=== PATIENT | male | born 1930 | race Caucasian/White ===

== ENCOUNTER 2020-03-14 11:16 | Inpatient (IN) | payer MEDICARE, OTHER ==
[~2020-03-14] VITALS: Ht 180.3 cm; Wt 59.0 kg
[2020-03-14] VITALS (10 sets, daily range): BP systolic 107–126; BP diastolic 53–90
[2020-03-14 11:41] LABS: ABG BASE EXCESS 4.9 mmol/L; ABG OXYGEN SATURATION 96.3 % (92.0-98.5); ABG PCO2 51.1 mmHg (35.0-45.0); ABG PH 7.392 (7.350-7.450); ABG PO2 95.1 mmHg (75.0-100.0); AaDO2 80.5 mmHg; COHb 1.4 % (0.5-1.5); MetHb 0.7 % (0.0-1.5); O2Hb 94.3 % (94.0-97.0); SITE, ABG Left Brachial; VENT MODE, BG NASAL CANNULA
[2020-03-14] MEDS ORDERED: ALBUTEROL FS 2.5 MG/3 ML VIAL.NEB ONE (11:47)
[2020-03-14] MEDS ORDERED: IPRATROPIUM NEB FS 0.5 MG/2.5 ML AMPUL.NEB ONE (11:47)
--- NOTE | 2020-03-14 11:53 | NUR ---
DECREASED O2 FLOW FROM 3 LPM TO 1 LPM O2 FLOW DUE TO 51 PCO2 AND 95 PAO2 Addendum: 03/14/20 at 1153 by OSWALD MCDERMOTT RT Amended: Links added.
--- NOTE | 2020-03-14 11:55 | NUR ---
BIBRA FROM SNF TO ER BED 5. LETHARGIC BUT EASILY ARROUSABLE. AAOX1. IN MOD RESP DISTRESS, LABORED BREATHING WITH ACCESSORY MUSCLE USE AND TACHYPNEIC. BROUGHT IN FOR DYSPNEA. PT REPORTED MORE ALTERED THAN USUAL. NOTED CRACKLES AND RONCHI BILATERALLY. O2 SAT IS 99% ON 3LPM. PT IS EASILY ARROUSABLE AND ABLE TO ANSWER SIMPLE QUESTION. PT IS NOTED WITH LOW GRADE TEMP OF 99.6 RECTALLY. MD WAS AT THE BEDSIDE FOR EVAL. ORDERS RECEIVED NOTED AND CARRIED OUT. IV LINE ESTABLISHED ON R CA20G. BLOOD DRAW. EKG DONE.XRAY DONE. PT ON MONITOR. RT AT BEDSIDE
[2020-03-14] MEDS ORDERED: ALBUTEROL FS 2.5 MG/3 ML VIAL.NEB NEB ONE (12:00)
[2020-03-14] MEDS ORDERED: IPRATROPIUM NEB FS 0.5 MG/2.5 ML AMPUL.NEB NEB ONE (12:00)
[2020-03-14 12:11] LABS: BASOPHILS # (AUTO) 0.1 /CMM (0.0-0.2); BASOPHILS % (AUTO) 0.4 % (0.0-2.0); EOSINOPHILS % (AUTO) 2.2 % (0.0-6.0); LYMPHOCYTES # (AUTO) 1.1 /CMM (0.8-4.8); LYMPHOCYTES % (AUTO) 9.1 % (20.0-44.0); MEAN CORPUSCULAR HGB CONC 30 g/dl (31.0-36.0); MEAN CORPUSCULAR VOLUME 74 fL (80-96); MONOCYTES # (AUTO) 1.6 /CMM (0.1-1.30); MONOCYTES % (AUTO) 13.1 % (2.0-12.0); NEUTROPHILS % (AUTO) 75.2 % (43.0-81.0); PLATELET COUNT (AUTO) 341 /CMM (150-450); RED BLOOD CELL COUNT(AUTO) 2.47 MIL/uL (4.5-6.0)
[2020-03-14 12:13] LABS: APPEARANCE,URINE CLEAR (CLEAR); BILIRUBIN,URINE NEGATIVE (NEGATIVE); BLOOD, URINE NEGATIVE Ery/uL (NEGATIVE); COLOR,URINE YELLOW (YELLOW); KETONES,URINE NEGATIVE (NEGATIVE); LEUKOCYTE ESTERASE ,URINE NEGATIVE (NEGATIVE); NITRITE, URINE NEGATIVE (NEGATIVE); PROTEIN,URINE NEGATIVE (NEGATIVE); UGLUCOSE NEGATIVE (NEGATIVE); UROBILINOGEN,URINE 0.2 EU/dL (0.2)
[2020-03-14 12:24] LABS: HEMATOCRIT 18 % (39-51); HEMOGLOBIN 5.4 g/dL (13.5-17.5)
[2020-03-14 12:25] LABS: CALCIUM, SERUM 8.4 mg/dL (8.5-10.1); CARBON DIOXIDE 32 mmol/L (21-32); CHLORIDE 114 mmol/L (98-107); CREATININE 1.5 mg/dL (0.6-1.3); GLUCOSE 88 mg/dL (74-106); POTASSIUM 4.6 mmol/L (3.5-5.1); SODIUM SERUM 150 mmol/L (136-145); UREA NITROGEN, BLOOD 31 mg/dL (7-18)
[2020-03-14] MEDS ORDERED: IV NS 0.9% 500 ML BAG IV ONE (12:30)
--- NOTE | 2020-03-14 12:30 | NUR ---
RT AT BEDSIDE FOR SUCTIONING NASOTRACHEAL ORDERED BY
[2020-03-14 12:39] LABS: ALANINE AMINOTRANSFERASE 60 U/L (12-78); ALKALINE PHOSPHATASE 107 U/L (46-116); ASPARTATE AMINOTRANSFERASE 44 U/L (15-37); B-TYPE NATRIURETIC PEPTIDE 1838 PG/ML (0-125); BILIRUBIN,DIRECT 0.1 mg/dL (0.0-0.2); BILIRUBIN,TOTAL 0.2 mg/dL (0.2-1.0); TOTAL PROTEIN, SERUM 7.7 g/dL (6.4-8.2)
[2020-03-14] MEDS ORDERED: CT SWABBABLE VALVE TRANS SET 1 EA INFUS.SET MC ONE (13:00)
[2020-03-14] MEDS ORDERED: IV NS 0.9% 250 ML IV ONE (13:00)
[2020-03-14] MEDS ORDERED: IOHEXOL-350 100 ML VIAL IV ONE (13:00)
--- NOTE | 2020-03-14 13:14 | NUR ---
BED 105 ARNULFO
--- NOTE | 2020-03-14 13:16 | NUR ---
LEFT VM TO HOUSE SUP TO CHANGE BED TO ICU
[2020-03-14 13:25] LABS: EOSINOPHILS % (MANUAL) 2 % (0-4); LYMPHOCYTES % (MANUAL) 12 % (16-48); MONOCYTES % (MANUAL) 7 % (0-11.0); NEUTROPHILS % (MANUAL) 79 (42-76)
[2020-03-14] MEDS ORDERED: LEVOFLOXACIN 750 MG /D5W 150ML 150 ML IV ONE (13:30)
[2020-03-14] MEDS ORDERED: PIPERACILLIN /TAZOBACTAM 3.375 G in IV D5W 50 ML IV ONE (13:30)
--- NOTE | 2020-03-14 13:33 | NUR ---
COVID SWAB DONE AND SENT TO LAB
--- NOTE | 2020-03-14 13:44 | NUR ---
PT BACK FROM CT
[2020-03-14] MEDS ORDERED: MAG HYDROX/AL HYDROX/SIMETH 30 ML UDC PO PRN (14:00)
[2020-03-14] MEDS ORDERED: MAGNESIUM HYDROXIDE 30 ML UDC PO PRN (14:00)
[2020-03-14] MEDS ORDERED: ONDANSETRON HCL/PF 4 MG/2 ML VIAL IVP PRN (14:00)
[2020-03-14] MEDS ORDERED: Z GUARD REMEDY 2 OZ OINT TP PRN (14:00)
[2020-03-14] MEDS ORDERED: ACETAMINOPHEN 325 MG TABLET PO PRN (14:00)
[2020-03-14] MEDS ORDERED: HYDROCODONE/APAP 5/325MG TABLET PO PRN (14:00)
--- NOTE | 2020-03-14 14:17 | NUR ---
REPORT FRANCY TO MONY DUPONT FOR MONA
--- NOTE | 2020-03-14 14:57 | NUR ---
PT TRASNPORTED TO UNIT ON [facility] WITH EMT AND RN AT BEDSIDE W/ ACLS PROTOCOL. NAD NOTED DURING TRANSPORT.
--- NOTE | 2020-03-14 15:54 | NUR ---
RN NOTE 1552 VS for blood transfusion: 98.2 83, 113/71, 22, 99%
--- NOTE | 2020-03-14 16:07 | NUR ---
RN NOTE VS after 15 min on BT: 116/54, 77, 26, 98%, 98.2.
--- NOTE | 2020-03-14 16:33 | NUR ---
RN NOTE 1445: Admitted patient from ER, 89y/o male for severe anemia, Hgb 5.4, Hct 18, no active bleeding. With GT intact, no active bleeding noted, noted with minimal bleeding on mouth but per ER nurse, started after swabbing for Covid test. Noted with labored breathing AEB using accessory muscles. Skin assessment done with another RN, Cy, noted with bilateral buttocks, left hib and BLE healed wound scars and below right knee wound, taken pictures and attached to chart. Placed on isolation prec for R/O Covid. 2PIVs intact. 1600: Blood transfusion ongoing, tolerated well. 1630: Verified with Dr. Ward, will do 2 units of blood instead of one only ordered from ER and labs in am.
[2020-03-14] MEDS: PANTOPRAZOLE 40 MG VIAL IV SCH (16:42)
--- NOTE | 2020-03-14 17:00 | NUR ---
RN NOTE VS for BT: 98.1, 76, 25, 107/53, 99
--- NOTE | 2020-03-14 18:00 | NUR ---
RN NOTE VS for BT: 98.3, 79, 27, 116/70, 99%
[2020-03-14] MEDS: ZOSYN IVPB 3.375 G in IV D5W 50ml IV SCH (18:05)
--- NOTE | 2020-03-14 18:59 | NUR ---
RN NOTE Done with 1PRBC< no adverse reactions noted. VS as ff: 123/69, 888, 98%, 25, 98.2
--- NOTE | 2020-03-14 20:11 | NUR ---
RN NOTES 2ND UNIT OF PRBC STARTED PATIENT IS AWAKE , VERBALLY RESPONSIVE ON O2 WITH TEMP 97.6, RESP 28 PULSE 87 BP 121/66 SATURATION 100% SR ON TELE MONITOR. NO RESPIRATORY DISTRESS. ON O2 1LPM VIA NC. KEPT PT CLEAN AND DRY. WILL CONTINUE TO MONITOR.
--- NOTE | 2020-03-14 20:30 | NUR ---
RN NOTES VS CHECKED TEMP 97.8 RESP 23 HR 88 BP 123/62 SATURATION 100% SR ON TELE MONITOR. PATIETN IS AWAKE VERBALLY RESPONSIVE. CONTINUE WITH BLOOD TRANSFUSION.
--- NOTE | 2020-03-14 23:30 | NUR ---
RN NOTES 2ND BLOOD TRANSFUSION FINISHED, TOLERATED WELL . PATIENT IS AOX3 WITH PWRIODS OF FORGETFUL. VERBALLY RESPONSIVE, NO ADVERSE REACTION FROM BLOOD TRANSFUSION LAST VSS AFTER TRANSFUSION ARE THE FF; TEMP 98.6 RESP 20 PULSE 84 BP 15/66 SATURATION 100% SR ON TELE MONITOR. INCONTINENT CARE RENDERED WITH BMX1 PADS SOAKING WITH URINE. KEPT PT CLEAN AND DRY. WILL CONTINUE TO MONITOR.
[2020-03-15] VITALS (22 sets, daily range): BP systolic 97–147; BP diastolic 53–80
[2020-03-15] MEDS: ZOSYN IVPB 3.375 G in IV D5W 50ml IV SCH ×2 (00:45→06:10)
[2020-03-15 03:58] LABS: BASOPHILS # (AUTO) 0.1 /CMM (0.0-0.2); BASOPHILS % (AUTO) 0.5 % (0.0-2.0); HEMATOCRIT 26 % (39-51); HEMOGLOBIN 8.1 g/dL (13.5-17.5); LYMPHOCYTES # (AUTO) 0.8 /CMM (0.8-4.8); MEAN CORPUSCULAR HGB CONC 31 g/dl (31.0-36.0); MEAN CORPUSCULAR VOLUME 77 fL (80-96); MONOCYTES # (AUTO) 1.5 /CMM (0.1-1.30); MONOCYTES % (AUTO) 10.9 % (2.0-12.0); NEUTROPHILS # (AUTO) 10.8 /CMM (1.8-8.9); NEUTROPHILS % (AUTO) 80.6 % (43.0-81.0); PLATELET COUNT (AUTO) 332 /CMM (150-450); WHITE BLOOD COUNT (AUTO) 13.4 K/uL (4.3-11.0)
[2020-03-15 04:14] LABS: CALCIUM, SERUM 8.9 mg/dL (8.5-10.1); CARBON DIOXIDE 28 mmol/L (21-32); CHLORIDE 116 mmol/L (98-107); CREATININE 1.5 mg/dL (0.6-1.3); GLUCOSE 80 mg/dL (74-106); MAGNESIUM 2.7 mg/dL (1.8-2.4); PHOSPHORUS 3.3 mg/dL (2.5-4.9); POTASSIUM 4.2 mmol/L (3.5-5.1); SODIUM SERUM 152 mmol/L (136-145); UREA NITROGEN, BLOOD 29 mg/dL (7-18)
--- NOTE | 2020-03-15 07:00 | NUR ---
RN NOTES PATIENT REMAINED STABLE DENIES PAIN. AFEBRILE. ROOM AIR TOLERATED WELL SATURATION 100%. SR ON TELE MONITOR. PATIENT SPITTING OUT THICK WHITE WITH TINGED OF BLOOD SECRETION. NO RESPIRATORY DISTRESS. VSS. NO PRESSORS, NO ACTIVE BLEEDING. SP BLOOD TRANSFUSION TOERATED WELL WITHOUT ADVERSE REACTION, INCONTINENT CARE RENDERED. KEPT PT CLEAN AND DRY. ENDORSED CONTINUITY OF CARE TO AM NURSE. LAST HGB THIS MORNING 8.1.
--- NOTE | 2020-03-15 07:15 | NUR ---
RN INITIAL NOTES RECEIVED PT AWAKE, A/OX2-3. ON ROOM AIR. NO SOB NOTED. NO RESPIRATORY DISTRESS NOTED. DENIES ANY PAIN. IV LINES IN PLACE. PT CLEAN AND DRY. PT COMFORTABLE. CALL LIGHT WITHIN REACH. WILL MONITOR
[2020-03-15 08:22] LABS: IRON, SERUM 131 ug/dl (50-175); TOTAL IRON BINDING CAPACITY 353 ug/dl (250-450)
--- NOTE | 2020-03-15 08:30 | NUR ---
RN NOTES SEEN BY DR MALIN. PT AWAKE, A/O. ON ROOM AIR. MD AWARE OF LATEST LABS AND CXR RESULT. OK TO DOWNGRADE PT TO TELE. WILL MONITOR
[2020-03-15 08:39] LABS: FERRITIN 145 ng/mL (8-388)
[2020-03-15] MEDS: IV 1/2NS 1000 ML 1,000 ML IV SCH ×2 (08:52→20:49)
[2020-03-15] MEDS: PANTOPRAZOLE 40 MG VIAL IV SCH ×2 (08:52→16:25)
[2020-03-15] MEDS: ENOXAPARIN SODIUM 40 MG/0.4 ML DISP.SYRIN SQ SCH (08:56)
[2020-03-15] MEDS ORDERED: POLY17PO4 PO (09:59)
[2020-03-15] MEDS ORDERED: NA P133E RC (09:59)
[2020-03-15] MEDS ORDERED: MULT-447 PO (09:59)
[2020-03-15] MEDS ORDERED: FLUT16SP NS (09:59)
[2020-03-15] MEDS ORDERED: ACET-2605 PO (09:59)
[2020-03-15] MEDS ORDERED: QUERCETIN PO (09:59)
[2020-03-15] MEDS ORDERED: LORA10TA7 PO (09:59)
[2020-03-15] MEDS ORDERED: SENN-261 PO (09:59)
[2020-03-15] MEDS ORDERED: ATOR20TA PO (09:59)
[2020-03-15] MEDS ORDERED: CITA10TA9 PO (09:59)
[2020-03-15] MEDS ORDERED: POTA-10 PO (09:59)
[2020-03-15] MEDS ORDERED: ACET325C7 PO (09:59)
[2020-03-15] MEDS ORDERED: CHOL100045 PO (09:59)
[2020-03-15] MEDS ORDERED: EPOE40003 IJ (09:59)
[2020-03-15] MEDS ORDERED: AMLO10TA4 PO (09:59)
[2020-03-15] MEDS ORDERED: MAGN400O6 PO (09:59)
[2020-03-15] MEDS ORDERED: TAMS-12 PO (09:59)
[2020-03-15] MEDS ORDERED: BISA10SU61 RC (09:59)
[2020-03-15] MEDS ORDERED: FERR325T23 PO (09:59)
[2020-03-15] MEDS ORDERED: TRAM50TA2 PO (09:59)
[2020-03-15] MEDS ORDERED: DOCU-141 PO (09:59)
[2020-03-15] MEDS ORDERED: MIRT15TA7 PO (09:59)
[2020-03-15] MEDS: PIPERACILLIN /TAZOBACTAM 3.375 G in IV D5W 100 ML IV SCH ×2 (13:53→20:49)
--- NOTE | 2020-03-15 18:30 | NUR ---
CLOSING NOTES NO SIGNIFICANT CHANGE NOTED. ON ROOM AIR. NO RESPIRATORY DISTRESS. NO SOB NOTED. DENIES ANY PAIN. KEPT CLEAN AND DRY. KEPT COMFORTABLE. WILL ENDORSE FOR CONTINUITY OF CARE.
--- NOTE | 2020-03-15 19:40 | NUR ---
RN OPENING NOTES: Rec'd pt awake in bed, A&Ox2-3. On room air O2 WNL. No SOB or resp distress noted. On isolation for R/O Covid. SR on tele monitor. NPO w/ GT site noted. LFA #20 and RAC #20 patent and flushed. Dressing c/d/i. 1/2NS infusing at 75ml/hr tolerating well. Safety measures in place. Will continue to monitor.
[2020-03-15 20:30] LABS: OCCULT BLOOD STOOL POSITIVE (NEGATIVE)
[2020-03-16] VITALS: BP 145/78
--- NOTE | 2020-03-16 03:31 | NUR ---
RN NOTE: Pt noted to have pulled out RAC IV. Elevated extremity and applied pressure. Started new line On RFA #20 patent and flushed.
[2020-03-16 04:00] VITALS: BP 126/92
[2020-03-16 04:24] LABS: BASOPHILS # (AUTO) 0.1 /CMM (0.0-0.2); BASOPHILS % (AUTO) 0.9 % (0.0-2.0); EOSINOPHILS % (AUTO) 2.5 % (0.0-6.0); HEMATOCRIT 27 % (39-51); HEMOGLOBIN 8.3 g/dL (13.5-17.5); LYMPHOCYTES # (AUTO) 0.9 /CMM (0.8-4.8); LYMPHOCYTES % (AUTO) 7.5 % (20.0-44.0); MEAN CORPUSCULAR HGB CONC 31 g/dl (31.0-36.0); MEAN CORPUSCULAR VOLUME 78 fL (80-96); MONOCYTES # (AUTO) 1.3 /CMM (0.1-1.30); MONOCYTES % (AUTO) 10.7 % (2.0-12.0); NEUTROPHILS # (AUTO) 9.3 /CMM (1.8-8.9); NEUTROPHILS % (AUTO) 78.4 % (43.0-81.0); PLATELET COUNT (AUTO) 350 /CMM (150-450); RED BLOOD CELL COUNT(AUTO) 3.45 MIL/uL (4.5-6.0); WHITE BLOOD COUNT (AUTO) 11.8 K/uL (4.3-11.0)
[2020-03-16 04:35] LABS: ALANINE AMINOTRANSFERASE 38 U/L (12-78); ALBUMIN 2.1 g/dL (3.4-5.0); ALKALINE PHOSPHATASE 103 U/L (46-116); ASPARTATE AMINOTRANSFERASE 24 U/L (15-37); BILIRUBIN,TOTAL 0.6 mg/dL (0.2-1.0); CALCIUM, SERUM 9.6 mg/dL (8.5-10.1); CARBON DIOXIDE 27 mmol/L (21-32); CHLORIDE 118 mmol/L (98-107); CREATININE 1.6 mg/dL (0.6-1.3); GLUCOSE 76 mg/dL (74-106); SODIUM SERUM 155 mmol/L (136-145); UREA NITROGEN, BLOOD 26 mg/dL (7-18)
[2020-03-16 04:52] LABS: CREATINE KINASE, TOTAL 80 U/L (39-308); THYROID STIMULATING HORMONE 2.193 uIU/mL (0.358-3.74); URIC ACID 5.9 mg/dL (2.6-7.2)
[2020-03-16] MEDS: PIPERACILLIN /TAZOBACTAM 3.375 G in IV D5W 100 ML IV SCH ×3 (05:15→21:24)
--- NOTE | 2020-03-16 06:35 | NUR ---
RN CLOSING NOTES: Pt remained stable throughout shift. No acute changes noted. No SOB or resp distress noted throughout shift. Remains on room air, with O2 WNL. SR w/ PVC's on tele monitor. NPO. LFA #20 and RFA #20 patent and flushing w/ 1/2NS infusing at 75ml/hr. and Zosyn infusing at 25ml/hr. Covid result neg. house calls nurse MD aware. All meds given as ordered. Kept clean/dry. Safety measures in place. Will endorse to AM nurse for MONA.
[2020-03-16 08:00] VITALS: BP 134/92
--- NOTE | 2020-03-16 08:00 | NUR ---
SALES REPRESENTATIVE MALT LIQUORS NOTE PATIENT IN BED, ALL NEEDS ATTENDEE, ON TELE MONITOR SR HR 96 , NO SOB NOTED AT THIS TIME STILL ON NPO AT THIS TIME , LT FA AND RT FA HL INTACT AND FLUSHED WELL ,BED IN LOWEST AND LOCKED POSITION , ON IVF ORDERED WILL CONT TO MONITOR
[2020-03-16] MEDS: ENOXAPARIN SODIUM 40 MG/0.4 ML DISP.SYRIN SQ SCH (08:51)
[2020-03-16] MEDS: PANTOPRAZOLE 40 MG VIAL IV SCH ×2 (08:51→17:10)
--- NOTE | 2020-03-16 09:00 | NUR ---
COLD ROLLING SUPERVISOR NOTE SPOKE WITH DR COTTO GEOTHERMAL OPERATIONS ENGINEER NOTIFIED THAT PATIENT WITH CHECK CONGESTION WILL F\U
[2020-03-16] MEDS: IV 1/2NS 1000 ML 1,000 ML IV SCH (10:42)
--- NOTE | 2020-03-16 10:59 | NUR ---
CIVIL LITIGATION ATTORNEY NOTE SPOKE WITH DR MOLINA NOTIFIED ABOUT CHEST CONGESTION ON IVF ORDERED
[2020-03-16 12:00] VITALS: BP 144/92
--- NOTE | 2020-03-16 13:03 | NUR ---
PHOTO MASK PATTERN GENERATOR NOTE TRANSFERRED TO ROOM 322 BED 2 WITH STABLE CONDITION
--- NOTE | 2020-03-16 13:45 | NUR ---
PHLEBOTOMY SUPERVISOR NOTE NOTED PATIENT SITTING ON FLOOR NEXT TO HIS BED , BODY CHECK DONE, VS TAKE ,NO SOB NOTED SKIN INTACT, ABLE TO MOVE BOTH UPPER AND LOWER EXTREMITIES, NO C\O PAIN OR DISCOMFORT MARGARITO WILL CALL DR NIELSEN
--- NOTE | 2020-03-16 14:30 | NUR ---
CITY WEIGHMASTER NOTE DR BO CALLED BACK AWARE OF PATIENT CONDITION. NO NEW ORDER GIVEN AT THIS TIME , SON KATIANA NOTIFIED
[2020-03-16 16:00] VITALS: BP 104/55
--- NOTE | 2020-03-16 18:15 | NUR ---
MEMBER SERVICE SPECIALIST NOTE WITH SEVERE CHEST CONGESTION, GENTLE SUCTION DONE BY RT, NOTE BLOODY SECRETION , DR COTTO NOTIFIED WITH ORDER TO HOLD LOVENOX ,ORDER CARRIED OUT
--- NOTE | 2020-03-16 18:28 | NUR ---
DISABILITY MANAGER NOTE ALL NEEDS ATTENDED , ON IVF ORDERED, WILL CONT TO MONITOR
[2020-03-16 18:36] LABS: APPEARANCE,URINE CLEAR (CLEAR); BILIRUBIN,URINE NEGATIVE (NEGATIVE); BLOOD, URINE SMALL Ery/uL (NEGATIVE); COLOR,URINE YELLOW (YELLOW); KETONES,URINE NEGATIVE (NEGATIVE); LEUKOCYTE ESTERASE ,URINE NEGATIVE (NEGATIVE); NITRITE, URINE NEGATIVE (NEGATIVE); PH,URINE 5.5 (5.0-8.0); PROTEIN,URINE NEGATIVE (NEGATIVE); UGLUCOSE NEGATIVE (NEGATIVE); UROBILINOGEN,URINE 0.2 EU/dL (0.2)
[2020-03-16 18:41] LABS: CREATININE, URINE 72.5 MG/DL (30.0-125.0)
[2020-03-16 18:55] LABS: EOSINOPHIL,URINE None Seen
[2020-03-16] MEDS ORDERED: DEXTROSE 50%-WATER 50 ML DISP.SYRIN IV PRN (19:00)
--- NOTE | 2020-03-16 19:40 | NUR ---
TRANSFER CAR OPERATOR NOTE: PATIENT RESTING IN BED, NO ACUTE DISTRESS NOTED. BREATHING EVEN AND UNLABORED, NO SOB NOTE. IV TO RFA IN PLACE, INFUSING 1/2 NS AT 75ML/HR. BED LOCKED AND IN LOWEST POSITION, CALL LIGHT IN REACH. WILL CONTINUE TO MONITOR. Addendum: 03/16/20 at 2231 by PATSY POTTER RN G-TUBE IN PLACE, CLAMPED AT THIS TIME.
[2020-03-16 20:00] VITALS: BP 139/73
[2020-03-16] MEDS ORDERED: INSULIN REGULAR, HUMAN 100 UNIT/ML 3 ML VIAL SQ PRN (21:00)
--- NOTE | 2020-03-16 21:00 | NUR ---
GENERAL NEUROLOGIST NOTE: PATIENT FALL RISK AND PATIENT MOVED CLOSER TO THE STATION TO ROOM 309-1. BELONGINGS MOVED TO ROOM. BED LOCKED AND IN LOWEST POSITION, CALL LIGHT IN REACH. WILL CONTINUE TO MONITOR.
[2020-03-17] MEDS ORDERED: BLOOD SUGAR DIAGNOSTIC 1 EACH STRIP IN SCH
[2020-03-17] MEDS: IV 1/2NS 1000 ML 1,000 ML IV SCH ×2 (00:45→13:20)
--- NOTE | 2020-03-17 01:20 | NUR ---
OFFSHORE WIND TURBINE TECHNICIAN NOTE: PATIENT STARTED ON JEVITY 1.2 AT 30ML/HR, PER MD ORDER. WILL CONTINUE AT 30ML/HR FOR 24 HOURS AND TO ADVANCE TOLERATED. HOB ELEVATED. G-TUBE RATE GOAL AT 65ML/HR. WILL CONTINUE TO MONITOR.
[2020-03-17] MEDS: JEVITY 1.2 CAL 1,000 ML BOTTLE GT PRN (01:21)
--- NOTE | 2020-03-17 02:05 | NUR ---
THEATRE ARTS PROFESSOR NOTE: PATIENT NOTED CONGESTED, TRIED TO ORAL SUCTION WITH MINIMAL SECRETION. RT ON FLOOR AND ASSISTED WITH DEEP SUCTION WITH THICK WHITE, BLOODY TINGED SECRETION. OXYGEN AT 2 LPM VIA NC IN PLACE. O2 SAT 97%. HOB ELEVATED. WILL CONTINUE TO MONITOR.
[2020-03-17] MEDS: PIPERACILLIN /TAZOBACTAM 3.375 G in IV D5W 100 ML IV SCH ×3 (05:26→21:11)
--- NOTE | 2020-03-17 06:10 | NUR ---
FIRE TRUCK DRIVER NOTE: PATIENT RESTING IN BED, NO ACUTE DISTRESS NOTED. BREATHING EVEN AND UNLABORED, NO SOB NOTE. IV TO RFA IN PLACE, INFUSING 1/2 NS AT 75ML/HR. G-TUBE IN PLACE, INFUSING JEVITY 1.2 AT 30ML/HR, HOB ELEVATED. BED LOCKED AND IN LOWEST POSITION, CALL LIGHT IN REACH. WILL ENDORSE TO DAY NURSE TO CONTINUE WITH PLAN OF CARE.
[2020-03-17 07:07] LABS: PTH, INTACT 25 pg/mL (15-65)
--- NOTE | 2020-03-17 07:30 | NUR ---
MS/RN Opening note Patient received from manager night. Alert to self, two liters oxygen via nasal cannula, saturation 100%. Congested with audible wheezing, suctioned with moderate amount of blood stained secretins. IV zosyn infusing at 25mh/hr, no signs of infiltration seen. GT feeding at 30ml, with goal rate of 65ml/hr. No residual noted. Patient to be turned and repositioned every 2-3 hours throughout the day to prevent skin breakdown, heels off loaded on pillows. Sitter remains at bedside to ensure safety as patient has history of previous fall whilst in the hospital. Will continue to monitor and ensure safety.
[2020-03-17 07:47] VITALS: BP 136/61
[2020-03-17] MEDS: PANTOPRAZOLE 40 MG VIAL IV SCH ×2 (08:22→16:42)
--- NOTE | 2020-03-17 09:00 | NUR ---
MS/RN Medications Morning medications administered as ordered.
[2020-03-17] MEDS ORDERED: AMLODIPINE BESYLATE 10 MG TABLET PO SCH (09:30)
[2020-03-17] MEDS ORDERED: TRAMADOL HCL 50 MG TABLET PO PRN (09:30)
[2020-03-17] MEDS ORDERED: Medication Not On Formulary EA (Acetaminophen (Tylenol) 650 MG) PO PRN (09:30)
[2020-03-17] MEDS ORDERED: MAGNESIUM HYDROXIDE 30 ML UDC PO PRN (09:30)
[2020-03-17] MEDS ORDERED: BISACODYL SUPP (10 MG) 10 MG/SUPP.RECT SUPP.RECT RC PRN (09:30)
[2020-03-17] MEDS ORDERED: LORATADINE 10 MG TABLET PO PRN (09:30)
[2020-03-17] MEDS ORDERED: HYDROCODONE/APAP 5/325MG TABLET GT PRN (09:32)
--- NOTE | 2020-03-17 09:38 | NUR ---
MS/RN S/B Dr Giraldo Seen by Dr Giraldo - per GI, no EGD as blood loss may be from head and neck cancer. In agreement with hospice evaluation.
--- NOTE | 2020-03-17 11:00 | NUR ---
MS/RN S/B Dr Prajapati Seen by MD - continue to monitor H&H and transfuse if Hb <7.0. Labs ordered for tomorrow.
[2020-03-17] MEDS: DOCUSATE SODIUM LIQ 100 MG/10 ML UDC GT SCH (12:27)
--- NOTE | 2020-03-17 14:50 | NUR ---
MS/RN S/B Dr Urban Seen by Dr Urban - labs ordered for tomorrow.
[2020-03-17 14:54] LABS: CALCIUM, SERUM 9.5 mg/dL (8.5-10.1); CARBON DIOXIDE 26 mmol/L (21-32); CHLORIDE 119 mmol/L (98-107); CREATININE 1.6 mg/dL (0.6-1.3); GLUCOSE 90 mg/dL (74-106); POTASSIUM 3.5 mmol/L (3.5-5.1); SODIUM SERUM 155 mmol/L (136-145); UREA NITROGEN, BLOOD 24 mg/dL (7-18)
[2020-03-17 15:00] LABS: MAGNESIUM 2.4 mg/dL (1.8-2.4); PHOSPHORUS 4.3 mg/dL (2.5-4.9)
[2020-03-17 15:35] LABS: BASOPHILS # (AUTO) 0.1 /CMM (0.0-0.2); BASOPHILS % (AUTO) 0.6 % (0.0-2.0); EOSINOPHILS % (AUTO) 3.6 % (0.0-6.0); HEMATOCRIT 26 % (39-51); HEMOGLOBIN 8.2 g/dL (13.5-17.5); LYMPHOCYTES # (AUTO) 0.7 /CMM (0.8-4.8); LYMPHOCYTES % (AUTO) 7.4 % (20.0-44.0); MEAN CORPUSCULAR HGB CONC 31 g/dl (31.0-36.0); MEAN CORPUSCULAR VOLUME 78 fL (80-96); MONOCYTES % (AUTO) 9.6 % (2.0-12.0); NEUTROPHILS % (AUTO) 78.8 % (43.0-81.0); PLATELET COUNT (AUTO) 324 /CMM (150-450); RED BLOOD CELL COUNT(AUTO) 3.36 MIL/uL (4.5-6.0); WHITE BLOOD COUNT (AUTO) 10.1 K/uL (4.3-11.0)
[2020-03-17 16:00] VITALS: BP 142/77
[2020-03-17 17:19] LABS: *SPE A/G RATIO 0.5 (0.7-1.7); *SPE ALBUMIN 2.3 g/dL (2.9-4.4); *SPE ALPHA-1-GLOBULIN 0.5 g/dL (0.0-0.4); *SPE GLOBULIN, TOTAL 4.7 g/dL (2.2-3.9); *SPE M-SPIKE Not Observed g/dL (Not Observed); *SPEGAMMA GLOBULIN 2.2 g/dL (0.4-1.8)
--- NOTE | 2020-03-17 18:50 | NUR ---
MS/RN End note Patient remains in stable condition, turned and repositioned throughout the day. Tolerating GT feedings, no residual noted. Will endores to oracle soa developer.
--- NOTE | 2020-03-17 19:00 | NUR ---
rn ms notes received patient in bed head of bed elevated for aspirations precautions awake alert and oriented x1, on 2 l via nc tolerating well, gtube intact and flowing as ordered no residuals noted tolerating well, iv site to right fa #20g intact and patent, no redness, no infiltration present, ivf running as ordered, oriented to staff and call light and kept within reach, safety precautions rendered, sitter at bedside, low bed and locked, remains comfortable at this time will continue to attend to needs.
[2020-03-17 20:00] VITALS: BP 156/79
[2020-03-17] MEDS: ATORVASTATIN 10 MG TABLET GT SCH (21:13)
[2020-03-17] MEDS: TAMSULOSIN 0.4 MG CAP.SR.24H GT SCH (21:13)
[2020-03-17] MEDS: MIRTAZAPINE 15 MG TABLET GT SCH (21:13)
[2020-03-17] MEDS: SENNOSIDES 8.6 MG TABLET GT SCH (21:14)
[2020-03-17] MEDS ORDERED: Medication Not On Formulary EA (Atorvastatin Calcium (Lipitor) 20 MG) PO SCH (22:00)
[2020-03-18] MEDS: IV 1/2NS 1000 ML 1,000 ML IV SCH (03:11)
[2020-03-18] MEDS: JEVITY 1.2 CAL 1,000 ML BOTTLE GT PRN (03:12)
[2020-03-18] MEDS: PIPERACILLIN /TAZOBACTAM 3.375 G in IV D5W 100 ML IV SCH (04:45)
[2020-03-18] MEDS ORDERED: FERROUS SULFATE (325 MG) 325 MG/TAB TABLET PO SCH (06:00)
[2020-03-18 06:36] LABS: BASOPHILS # (AUTO) 0.1 /CMM (0.0-0.2); BASOPHILS % (AUTO) 0.7 % (0.0-2.0); EOSINOPHILS % (AUTO) 4.2 % (0.0-6.0); HEMATOCRIT 27 % (39-51); LYMPHOCYTES % (AUTO) 7.7 % (20.0-44.0); MEAN CORPUSCULAR HGB CONC 30 g/dl (31.0-36.0); MEAN CORPUSCULAR VOLUME 79 fL (80-96); MONOCYTES # (AUTO) 1.1 /CMM (0.1-1.30); NEUTROPHILS # (AUTO) 9.9 /CMM (1.8-8.9); NEUTROPHILS % (AUTO) 78.4 % (43.0-81.0); PLATELET COUNT (AUTO) 319 /CMM (150-450); RED BLOOD CELL COUNT(AUTO) 3.37 MIL/uL (4.5-6.0); WHITE BLOOD COUNT (AUTO) 12.7 K/uL (4.3-11.0)
--- NOTE | 2020-03-18 06:48 | NUR ---
rn ms closing notes patient in bed head of bed elevated for aspirations precautions awake alert and oriented x1, on venturi mask 30 % fio2 suggested by RT made aware dx COPD, noted mouth breather ,tolerated well throughout shift sp02 wnl during shift, gtube intact and flowing as ordered no residuals noted tolerating well increased to 40cc/hr, iv site to right fa #20g intact and patent, no redness, no infiltration present, ivf running as ordered, call light kept within reach, safety precautions rendered, sitter at bedside, low bed and locked, remains comfortable at this time will continue to attend to needs and endorse to next shift, sacral and heels remains intact, and offloaded.
[2020-03-18 07:04] LABS: ALANINE AMINOTRANSFERASE 29 U/L (12-78); ALKALINE PHOSPHATASE 89 U/L (46-116); ASPARTATE AMINOTRANSFERASE 22 U/L (15-37); BILIRUBIN,TOTAL 0.3 mg/dL (0.2-1.0); CALCIUM, SERUM 9.3 mg/dL (8.5-10.1); CARBON DIOXIDE 27 mmol/L (21-32); CHLORIDE 121 mmol/L (98-107); CREATININE 1.4 mg/dL (0.6-1.3); GLUCOSE 133 mg/dL (74-106); MAGNESIUM 2.4 mg/dL (1.8-2.4); PHOSPHORUS 3.1 mg/dL (2.5-4.9); POTASSIUM 3.5 mmol/L (3.5-5.1); UREA NITROGEN, BLOOD 18 mg/dL (7-18)
[2020-03-18 07:13] LABS: SODIUM SERUM 158 mmol/L (136-145)
--- NOTE | 2020-03-18 07:30 | NUR ---
MS/RN Opening note Patient received from case manager. Alert X2, able to follow able to follow very simple commands. Vital signs within normal range, currently receiving oxygen via venti mask at 6l, (changed to mask at night time as patient is a mouth breather)will switch back to nasal cannula during day. GT feeding at 40ml/hr, no residual noted as start of shift. IV fluids at 75ml/hr, no signs of any infiltration. Sitter remains at bedside as fall risk. Will continue to monitor and ensure safety.
[2020-03-18 08:00] VITALS: BP 159/75
[2020-03-18] MEDS: DOCUSATE SODIUM LIQ 100 MG/10 ML UDC GT SCH (08:10)
[2020-03-18] MEDS: FERROUS SULFATE UDC 300 MG/5 ML UDC GT SCH (08:10)
[2020-03-18] MEDS: MULTIVIT W/MINERALS 1 TAB TABLET GT SCH (08:10)
[2020-03-18] MEDS: CITALOPRAM HYDROBROMIDE 10 MG TABLET NG SCH (08:10)
[2020-03-18] MEDS: PANTOPRAZOLE 40 MG VIAL IV SCH ×2 (08:10→16:25)
[2020-03-18] MEDS: CHOLECALCIFEROL 1,000 UNIT TABLET (VIT D3) GT SCH (08:11)
[2020-03-18] MEDS: FLUTICASONE PROPIONATE 16 GM BOTTLE NS SCH (08:13)
[2020-03-18] MEDS: AMLODIPINE BESYLATE 10 MG TABLET NG SCH (08:14)
--- NOTE | 2020-03-18 08:45 | NUR ---
MS/RN S/B Dr Prajapati Seen by Dr Prajapati - labs ordered for tomorrow. IV fluids changed to D5W @75ml/hr.
[2020-03-18] MEDS ORDERED: Medication Not On Formulary EA (Multivitamin With Minerals (One Daily Complete) 1 EACH) PO SCH (09:00)
[2020-03-18] MEDS ORDERED: Medication Not On Formulary EA ([Quercetin] 500 MG) PO SCH (09:00)
[2020-03-18] MEDS ORDERED: IV D5W 1,000 ML IV ONE ×2 (09:00→12:00)
[2020-03-18] MEDS ORDERED: DOCUSATE SODIUM 100 MG CAPSULE PO SCH (09:00)
[2020-03-18] MEDS ORDERED: Medication Not On Formulary EA (Cholecalciferol (Vitamin D3) (Vitamin D3) 1,000 UNIT) PO SCH (09:00)
[2020-03-18] MEDS: EPOETIN ALFA (4000 UNIT) 4,000 UNIT/ML VIAL SQ SCH (09:50)
--- NOTE | 2020-03-18 09:51 | NUR ---
MS/RN Epogen Epogen 4,000units administered for Hb 8.0
--- NOTE | 2020-03-18 10:15 | NUR ---
MS/RN Labs Morning labs reviewed: -H&H 03/11 -WBC 12.7 -Na 155
--- NOTE | 2020-03-18 10:52 | NUR ---
MS/RN S/B Dr Peters Seen by Dr Peters - agree with conservative approach, free water GT replacement and low flow oxygen.
[2020-03-18 16:00] VITALS: BP 139/78
--- NOTE | 2020-03-18 18:30 | NUR ---
MS/RN End note Patient remains in stable condition, tolerating feedings, no residual noted. Has been turned and repositioned every 2-3 hours to prevent skin breakdown, heels off loaded on pillows. For possible discharge to SNF tomorrow, will endorse to manager shift.
--- NOTE | 2020-03-18 19:15 | NUR ---
MS/RN Room change Patient's room assignment changed to 327-1.
--- NOTE | 2020-03-18 19:42 | NUR ---
MS RN NOTES RECEIVED PATIENT AWAKE, CONFUSED, SAFETY MEASURES IN PLACE, PATIENT MOVED FROM ROOM 309-1 TO 327-1, NO SIGNS AND SYMPTOMS OF ACUTE RESPIRATORY OR CARDIAC DISTRESS NOTED. PERIPHERAL IV LINE OF HIS RIGHT FOREARM G#20, INTACT AND PATENT NO SIGNS OF INFILTRATION NOTED. REPOSITIONED FOR COMFORT, GT INTACT AND PATENT, ASPIRATION PRECAUTION EMPHASIZED. ALL NEEDS ANTICIPATED. WILL CONTINUE TO MONITOR ACCORDINGLY.
[2020-03-18 20:00] VITALS: BP 121/62
[2020-03-18] MEDS: TAMSULOSIN 0.4 MG CAP.SR.24H GT SCH (22:29)
[2020-03-18] MEDS: SENNOSIDES 8.6 MG TABLET GT SCH (22:29)
[2020-03-18] MEDS: MIRTAZAPINE 15 MG TABLET GT SCH (22:29)
[2020-03-18] MEDS: ATORVASTATIN 10 MG TABLET GT SCH (22:29)
--- NOTE | 2020-03-19 06:05 | NUR ---
MS RN NOTES ALL NEEDS ATTENDED AND MET. ABLE TO REST AND SLEPT AT INTERVALS, NO ACUTE SIGNS OF DISTRESS. SAFETY MEASURES IN PLACE, ASPIRATION PRECAUTION EMPHASIZED. SITTER AT BEDSIDE. GT FEEDING TOLERATING WELL, IV ACCESS INTACT AND PATENT. ALL NEEDS ANTICIPATED. WILL ENDORSE TO AM NURSE FOR CONTINUITY OF CARE.
[2020-03-19 06:22] LABS: BASOPHILS # (AUTO) 0.1 /CMM (0.0-0.2); BASOPHILS % (AUTO) 0.5 % (0.0-2.0); EOSINOPHILS % (AUTO) 2.8 % (0.0-6.0); HEMATOCRIT 29 % (39-51); HEMOGLOBIN 8.7 g/dL (13.5-17.5); LYMPHOCYTES # (AUTO) 0.9 /CMM (0.8-4.8); LYMPHOCYTES % (AUTO) 7.4 % (20.0-44.0); MEAN CORPUSCULAR HGB CONC 30 g/dl (31.0-36.0); MEAN CORPUSCULAR VOLUME 79 fL (80-96); MONOCYTES # (AUTO) 0.9 /CMM (0.1-1.30); MONOCYTES % (AUTO) 7.5 % (2.0-12.0); NEUTROPHILS # (AUTO) 10.2 /CMM (1.8-8.9); NEUTROPHILS % (AUTO) 81.8 % (43.0-81.0); PLATELET COUNT (AUTO) 296 /CMM (150-450); WHITE BLOOD COUNT (AUTO) 12.5 K/uL (4.3-11.0)
[2020-03-19 06:24] LABS: CALCIUM, SERUM 9.3 mg/dL (8.5-10.1); CREATININE 1.2 mg/dL (0.6-1.3); POTASSIUM 3.4 mmol/L (3.5-5.1)
[2020-03-19] MEDS: JEVITY 1.2 CAL 1,000 ML BOTTLE GT PRN (06:54)
[2020-03-19 08:00] VITALS: BP 150/68
--- NOTE | 2020-03-19 08:00 | NUR ---
MS RN NOTES PATIENT IN BED RESTING, PATIENT NOTED WITH SOME SOB AND SOME CONGESTION. PATIENT WITH SITTER AT BEDSIDE. PERIPHERAL IV INTACT, PATENT. SAFETY MEASURES IN PLACE WILL CONTINUE TO MONITOR.
[2020-03-19] MEDS: PANTOPRAZOLE 40 MG VIAL IV SCH ×2 (10:01→17:36)
[2020-03-19] MEDS: CHOLECALCIFEROL 1,000 UNIT TABLET (VIT D3) GT SCH (10:01)
[2020-03-19] MEDS: DOCUSATE SODIUM LIQ 100 MG/10 ML UDC GT SCH (10:01)
[2020-03-19] MEDS: MULTIVIT W/MINERALS 1 TAB TABLET GT SCH (10:01)
[2020-03-19] MEDS: FERROUS SULFATE UDC 300 MG/5 ML UDC GT SCH (10:01)
[2020-03-19] MEDS: AMLODIPINE BESYLATE 10 MG TABLET NG SCH (10:02)
[2020-03-19] MEDS: POTASSIUM CHLORIDE 20 MEQ TAB.PRT.SR PO SCH ×2 (10:03→11:18)
[2020-03-19] MEDS: CITALOPRAM HYDROBROMIDE 10 MG TABLET NG SCH (10:04)
[2020-03-19] MEDS: FLUTICASONE PROPIONATE 16 GM BOTTLE NS SCH (11:18)
[2020-03-19 11:26] LABS: ABG BASE EXCESS 3.4 mmol/L; ABG OXYGEN SATURATION 97.6 % (92.0-98.5); ABG PCO2 51.9 mmHg (35.0-45.0); ABG PO2 107.7 mmHg (75.0-100.0); AaDO2 59.7 mmHg; COHb 0.1 % (0.5-1.5); MetHb 0.4 % (0.0-1.5); O2Hb 97.1 % (94.0-97.0); SITE, ABG Right Radial; VENT MODE, BG 3 L NC
--- NOTE | 2020-03-19 12:00 | NUR ---
MS RN NOTES PATIENT NOTES WITH CONGESTION AND SOME SOB. RT CALLED FOR DEEP SUCTIONING.
[2020-03-19] MEDS: methylPREDNISolone SOD SUCC 40 MG/ML VIAL IV SCH ×2 (12:18→17:36)
--- NOTE | 2020-03-19 12:30 | NUR ---
MS RN NOTES PATIENT IN BED RESTING, NOTED WITH SOB AND CONGESTION, PATIENT SEEN BY DR. COTTO ORDERS FOR ABG AND CANCELL DISCHARGE. STATES HE WILL PLACE ORDERS FOR BREATHING TREATMENTS.
[2020-03-19] MEDS: ACETYLCYSTEINE 10% SOLN 400 MG/4 ML VIAL NEB SCH ×3 (12:31→23:46)
[2020-03-19] MEDS: IPRATROPIUM NEB FS 0.5 MG/2.5 ML AMPUL.NEB NEB SCH ×4 (12:31→23:46)
[2020-03-19] MEDS: ALBUTEROL HALF STRENGTH 1.25 MG/3 ML VIAL.NEB NEB SCH ×4 (12:31→23:46)
[2020-03-19 16:00] VITALS: BP 144/84
--- NOTE | 2020-03-19 19:17 | NUR ---
MS RN NOTES PATIENT IN BED RESTING. ALL DUE MEDICATIONS ADMINISTERED. ALL NEEDS MET. WILL ENDORSE CARET TO PM SHIFT.
--- NOTE | 2020-03-19 19:39 | NUR ---
MS RN NOTES RECEIVED PATIENT AWAKE, CONFUSED, SAFETY MEASURES IN PLACE, LABORED BREATHING NOTED, MONITOR O2 SATURATION MAINTAINING ABOVE 92% ON LOW FLOW O2 AT 2LPM VIA NASAL CANNULA, SITTER AT BEDSIDE, PERIPHERAL IV LINE OF HIS RIGHT FOREARM G#20, INTACT AND PATENT NO SIGNS OF INFILTRATION NOTED. REPOSITIONED FOR COMFORT, GT INTACT AND PATENT, ASPIRATION PRECAUTION EMPHASIZED. ALL NEEDS ANTICIPATED. WILL CONTINUE TO MONITOR ACCORDINGLY.
[2020-03-19 20:45] VITALS: BP 140/68
[2020-03-19] MEDS: TAMSULOSIN 0.4 MG CAP.SR.24H GT SCH (22:43)
[2020-03-19] MEDS: ATORVASTATIN 10 MG TABLET GT SCH (22:43)
[2020-03-19] MEDS: SENNOSIDES 8.6 MG TABLET GT SCH (22:43)
[2020-03-19] MEDS: MIRTAZAPINE 15 MG TABLET GT SCH (22:43)
[2020-03-20] VITALS (51 sets, daily range): BP systolic 51–149; BP diastolic 27–78
--- NOTE | 2020-03-20 00:08 | NUR ---
MS RN NOTES INFORMED SHARA MERCER DNP REGARDING PATIENT SUDDEN CHANGE OF CONDITION, BLOOD SUGAR CHECKED 163MG/DL, BP 171/72, HR 122-125, SATING 75%-92% ON 2 LPM VIA NASAL CANNULA. OBTAINED ORDER. FOR ABGs, CXR, OK TO TRANSFER TO ICU FOR HIGHER LEVEL OF CARE. REPORT GIVEN TO ICU NURSE MONY DIANE . CHARGE NURSE MONY PRINGLE AWARE, NURSING DELIVERY COORDINATOR MADE AWARE.
--- NOTE | 2020-03-20 00:20 | NUR ---
RT NOTE Late Entry: Pt rec'd on simple mask at 8lpm. pt showed tachypnea, tachycardia, and accessory muscle usage. Abg taken and critical results given to RN. Pt orally intubated via ETT sz #6.5 secured at 24cm at the bottom lipline. Colormetric CO2 color change noted. Clear breath sounds heard bilaterally. Pt placed on [facility] vent on AC mode settings as charted per md orders. Pt sx'd for thick mod amt of bloody secretions. Alarms are set and audible. Vent plugged into red outlet. Ambu bag bedside. Waiting chest Xray results. post intubation ABG to be taken with in 1 hr. Will continue to monitor closely Addendum: 03/20/20 at 0105 by ROMEO LUNDY RT Amended: Links added.
[2020-03-20 00:39] LABS: ABG PCO2 152.6 mmHg (35.0-45.0); ABG PO2 139.4 mmHg (75.0-100.0); COHb 0.6 % (0.5-1.5); MetHb 0.3 % (0.0-1.5); O2Hb 96.1 % (94.0-97.0); SITE, ABG Left Radial; VENT MODE, BG Simple mask
[2020-03-20] MEDS: PROPOFOL 100 ML IV PRN ×3 (02:54→23:22)
[2020-03-20 03:01] LABS: ABG BASE EXCESS -0.5 mmol/L; ABG OXYGEN SATURATION 99.5 % (92.0-98.5); ABG PCO2 45.5 mmHg (35.0-45.0); ABG PH 7.359 (7.350-7.450); ABG PO2 280.9 mmHg (75.0-100.0); AaDO2 241.7 mmHg; COHb 0.3 % (0.5-1.5); MetHb 0.4 % (0.0-1.5); O2Hb 98.8 % (94.0-97.0); SITE, ABG Left Radial; VENT MODE, BG AC20 VT450 80% PEEP+0
[2020-03-20] MEDS: ALBUTEROL HALF STRENGTH 1.25 MG/3 ML VIAL.NEB NEB SCH ×6 (03:10→23:20)
[2020-03-20] MEDS: IPRATROPIUM NEB FS 0.5 MG/2.5 ML AMPUL.NEB NEB SCH ×6 (03:10→23:19)
--- NOTE | 2020-03-20 06:26 | NUR ---
RN NOTE NOTIFIED THAT PATIENT IS AFIB HR UP TO 150'S. EKG ORDERED.
--- NOTE | 2020-03-20 06:40 | NUR ---
RN NOTE ELEMENTARY VOCAL MUSIC TEACHER CALLED DR. MERCER, INFORMED HR 150S AND BP DROPPED TO 80S, OBTAINED ORDER FOR CARDIZEM 10MG.
[2020-03-20 06:47] LABS: BASOPHILS % (AUTO) 0.3 % (0.0-2.0); HEMATOCRIT 24 % (39-51); HEMOGLOBIN 7.2 g/dL (13.5-17.5); LYMPHOCYTES # (AUTO) 0.8 /CMM (0.8-4.8); LYMPHOCYTES % (AUTO) 4.9 % (20.0-44.0); MEAN CORPUSCULAR HGB CONC 30 g/dl (31.0-36.0); MEAN CORPUSCULAR VOLUME 80 fL (80-96); MONOCYTES # (AUTO) 1.6 /CMM (0.1-1.30); MONOCYTES % (AUTO) 9.4 % (2.0-12.0); NEUTROPHILS # (AUTO) 14.7 /CMM (1.8-8.9); NEUTROPHILS % (AUTO) 85.4 % (43.0-81.0); PLATELET COUNT (AUTO) 262 /CMM (150-450); RED BLOOD CELL COUNT(AUTO) 3.02 MIL/uL (4.5-6.0); WHITE BLOOD COUNT (AUTO) 17.2 K/uL (4.3-11.0)
--- NOTE | 2020-03-20 06:48 | NUR ---
AUTOMATIC GRINDER OPERATOR PT NOTED TO CONVERT TO AFIB W/SBP 70-80s A RUSLAN NOTIFIED W/NEW ORDERS RECEIVED.
[2020-03-20] MEDS ORDERED: DILTIAZEM HCL 50 MG IV IV ONE (07:00)
--- NOTE | 2020-03-20 07:00 | NUR ---
RN NOTE PATIENT IS INTUBATED, SEDATED WITH PROPOFOL, CONTINUES HAVING BLOOD TINGED SECRETIONS, CARDIZEM PUSHED BY MATERIAL LOADER. REPORT GIVEN TO DAY SHIFT RN.
[2020-03-20] MEDS ORDERED: ACETAMINOPHEN 650 MG/20.3 ML UDC GT PRN (07:08)
[2020-03-20] MEDS ORDERED: MAG HYDROX/AL HYDROX/SIMETH 30 ML UDC GT PRN (07:09)
[2020-03-20] MEDS ORDERED: LORATADINE 10 MG TABLET GT PRN (07:09)
[2020-03-20] MEDS ORDERED: PANTOPRAZOLE 40 MG/PACK PACK GT SCH (07:11)
--- NOTE | 2020-03-20 07:17 | NUR ---
INTERNAL CARVER NOTE SEEN AND EXAMINED BY DR. BUCHANAN
[2020-03-20] MEDS ORDERED: IV NS 0.9% 1,000 ML IV PRN (07:23)
[2020-03-20 07:24] LABS: ALANINE AMINOTRANSFERASE 23 U/L (12-78); ALKALINE PHOSPHATASE 78 U/L (46-116); ASPARTATE AMINOTRANSFERASE 22 U/L (15-37); BILIRUBIN,TOTAL 0.2 mg/dL (0.2-1.0); CALCIUM, SERUM 9.3 mg/dL (8.5-10.1); CARBON DIOXIDE 28 mmol/L (21-32); CHLORIDE 122 mmol/L (98-107); CREATININE 2.1 mg/dL (0.6-1.3); GLUCOSE 115 mg/dL (74-106); PHOSPHORUS 3.7 mg/dL (2.5-4.9); POTASSIUM 4.4 mmol/L (3.5-5.1); TOTAL PROTEIN, SERUM 7.5 g/dL (6.4-8.2); UREA NITROGEN, BLOOD 44 mg/dL (7-18)
[2020-03-20 07:30] LABS: SODIUM SERUM 160 mmol/L (136-145)
--- NOTE | 2020-03-20 07:30 | NUR ---
RN LABOR AND DELIVERY INITIAL NOTE RECEIVED PATIENT SEDATED ON DIPRIVAN AT 25MCG/KG/MIN. ETT IN PLACE, TOLERATING CURRENT VENT SETTINGS AC 20, TV 450, FIO2 50%, PEEP 0. ON TELE MONITOR AFIB UNCONTROLLED 130-140'S. SKIN WARM AND DRY TO TOUCH. BILATERAL WRIST RESTRAINTS IN PLACE, CIRCULATION CHECKED. SIDE RAILS UP AND LOCKED. BED KEPT AT LOWEST POSITION. RELAYED CRITICAL RESULT SODIUM [address] ROSAOD. WILL CONTINUE TO MONITOR.
[2020-03-20] MEDS: ACETYLCYSTEINE 10% SOLN 400 MG/4 ML VIAL NEB SCH ×3 (07:35→23:20)
[2020-03-20] MEDS ORDERED: PHENYLEPHRINE 50 MG in IV NS 0.9% 245 ML IV PRN ×2 (08:00)
[2020-03-20] MEDS ORDERED: PHENYLEPHRINE 100 MG in IV NS 0.9% 240 ML IV PRN (08:00)
[2020-03-20] MEDS ORDERED: IV NS 0.9% 1,000 ML BAG IV ONE (08:00)
--- NOTE | 2020-03-20 08:11 | NUR ---
ELECTRICAL SYSTEMS ENGINEER NOTE RECEIVED TELEPHONE CONSENT FOR PICC LINE FROM FRIEND KATIANA HAYES. PER MR HAYES PATIENT DOES NOT HAVE FAMILY. WITNESSED CONSENT MONY BRONSON.
--- NOTE | 2020-03-20 08:35 | NUR ---
DUTY ENGINEER NOTE RELAYED CRITICAL RESULT LACTIC ACID 2.[address] MEJÍA. PER RN ADMINISTRATIVE EXECUTIVE PICC LINE NURSE WILL BE HERE AT 4PM. WILL CONTINUE TO MONITOR.
--- NOTE | 2020-03-20 08:43 | NUR ---
NET WPF DEVELOPER NOTE PATIENT CONVERTED FROM AFIB UNCONTROLLED TO SR WITH PAC'S 70. WILL CONTINUE TO MONITOR.
[2020-03-20] MEDS: AMLODIPINE BESYLATE 10 MG TABLET NG SCH (09:00)
[2020-03-20] MEDS: FLUTICASONE PROPIONATE 16 GM BOTTLE NS SCH (09:00)
[2020-03-20] MEDS: DOCUSATE SODIUM LIQ 100 MG/10 ML UDC GT SCH (09:31)
[2020-03-20] MEDS: FERROUS SULFATE UDC 300 MG/5 ML UDC GT SCH (09:31)
[2020-03-20] MEDS: methylPREDNISolone SOD SUCC 40 MG/ML VIAL IV SCH (09:31)
[2020-03-20] MEDS: PANTOPRAZOLE 40 MG/PACK PACK GT SCH ×2 (09:32→16:46)
[2020-03-20] MEDS: MULTIVIT W/MINERALS 1 TAB TABLET GT SCH (09:32)
[2020-03-20] MEDS: CHOLECALCIFEROL 1,000 UNIT TABLET (VIT D3) GT SCH (09:32)
[2020-03-20] MEDS: CITALOPRAM HYDROBROMIDE 10 MG TABLET NG SCH (09:32)
[2020-03-20] MEDS: EPOETIN ALFA (4000 UNIT) 4,000 UNIT/ML VIAL SQ SCH (09:32)
[2020-03-20] MEDS ORDERED: ETOMIDATE 2 MG/ML VIAL IV ONE (10:50)
[2020-03-20] MEDS ORDERED: ROCURONIUM BROMIDE 50 MG/5 ML IV ONE (10:50)
[2020-03-20 11:16] LABS: BILIRUBIN,DIRECT 0.1 mg/dL (0.0-0.2)
[2020-03-20] MEDS: IV D5/0.45 NACL 1,000 ML IV PRN ×2 (11:21→21:00)
--- NOTE | 2020-03-20 11:22 | NUR ---
JOURNEYMAN PAINTER NOTE CLARIFIED DIET ORDER WITH DR COTTO, RECEIVED VERBAL ORDER NPO EXCEPT MEDS FOR NOW. RELAYED PATIENT RECEIVED 1500ML OF IV NS AND HAD ONLY 15ML OF URINE OUTPUT. RECEIVED VERBAL ORDER D5 1/2NS AT 100ML/HR. NOTED. WILL CONTINUE TO MONITOR.
[2020-03-20] MEDS: HYDROCORTISONE SOD SUCCINATE 100 MG/2 ML VIAL IV SCH ×2 (12:12→21:06)
--- NOTE | 2020-03-20 16:44 | NUR ---
GRADES 9 THROUGH 12 TEACHER NOTE PICC LINE INSERTION DONE BY PICC NURSE TO RIGHT UPPER ARM TRIPLE LUMEN, CHAGO WELL.
--- NOTE | 2020-03-20 18:44 | NUR ---
PNEUMATIC DRUM SANDER CLOSING NOTE PATIENT REMAIN SEDATED, ON DIPRIVAN AT 20MCG/KG/MIN TO RIGHT UPPER ARM PICC LINE CHAGO WELL. ETT IN PLACE, TOLERATING CURRENT VENT SETTINGS AC 20, TV 450, FIO2 50%, PEEP 0. ORAL CARE DONE. ON TELE MONITORING AND REMAINS ON SR HR:79. SKIN WARM AND DRY TO TOUCH. BILATERAL SOFT WRIST RESTRAINTS IN PLACE WITH SKIN AND CIRCULATION CHECKED. ON D5 1/2 NS INFUSING AT 100ML/HR CHAGO WELL TO RIGHT UPPER ARM PICC LINE. BRYAN CATHETER INTACT AND PATENT DRAINING YELLOW COLORED URINE VIA BEDSIDE. BED SIDE RAILS UP AND LOCKED. BED KEPT AT LOWEST POSITION. FREQUENT VISUAL CHECK DONE. IN NO APPARENT DISTRESS.
--- NOTE | 2020-03-20 19:10 | NUR ---
BOX CHIPPER OPENING NOTES: Rec'd pt sedated, intubated, on mechanical ventilation tolerating settings well. No SOB or resp distress noted. NSR on tele monitor. On SEED BUYER restraints. Will release and check circulation per protocol. LH #22, LAC #20, DONNA PICC line patent and flushed. Dressings c/d/i. D5 1/2NS infusing at 100ml/hr. Diprivan infusing at 20mcg/kg/min. GT site patent and flushed, NPO except meds. Campos cath in place, patent and draining urine via gravity. Safety measures in place. Will continue to monitor. Addendum: 03/20/20 at 2044 by MANDY JONES RN Intubated 6.5/24cm at the lip.
[2020-03-20] MEDS: MIRTAZAPINE 15 MG TABLET GT SCH (21:06)
[2020-03-20] MEDS: ATORVASTATIN 10 MG TABLET GT SCH (21:06)
[2020-03-20] MEDS: TAMSULOSIN 0.4 MG CAP.SR.24H GT SCH (21:06)
[2020-03-20] MEDS: SENNOSIDES 8.6 MG TABLET GT SCH (21:06)
[2020-03-21] VITALS (38 sets, daily range): BP systolic 98–159; BP diastolic 47–88
[2020-03-21] MEDS: ALBUTEROL HALF STRENGTH 1.25 MG/3 ML VIAL.NEB NEB SCH ×6 (03:26→23:26)
[2020-03-21] MEDS: IPRATROPIUM NEB FS 0.5 MG/2.5 ML AMPUL.NEB NEB SCH ×6 (03:26→23:26)
[2020-03-21] MEDS: HYDROCORTISONE SOD SUCCINATE 100 MG/2 ML VIAL IV SCH ×3 (04:18→21:06)
[2020-03-21 04:57] LABS: BASOPHILS % (AUTO) 0.1 % (0.0-2.0); LYMPHOCYTES # (AUTO) 0.7 /CMM (0.8-4.8); LYMPHOCYTES % (AUTO) 3.7 % (20.0-44.0); MEAN CORPUSCULAR HGB CONC 30 g/dl (31.0-36.0); MEAN CORPUSCULAR VOLUME 80 fL (80-96); MONOCYTES # (AUTO) 0.7 /CMM (0.1-1.30); MONOCYTES % (AUTO) 3.9 % (2.0-12.0); NEUTROPHILS # (AUTO) 16.5 /CMM (1.8-8.9); NEUTROPHILS % (AUTO) 92.3 % (43.0-81.0); PLATELET COUNT (AUTO) 182 /CMM (150-450); RED BLOOD CELL COUNT(AUTO) 2.43 MIL/uL (4.5-6.0); WHITE BLOOD COUNT (AUTO) 17.8 K/uL (4.3-11.0)
[2020-03-21 05:26] LABS: HEMATOCRIT 19 % (39-51); HEMOGLOBIN 5.8 g/dL (13.5-17.5)
--- NOTE | 2020-03-21 05:45 | NUR ---
CHANNEL SPECIALIST NOTE: 0513: Rec'd call from Thang in lab for critical H/H: 5.8/19.3. 0538: Paged excavation laborer Dr. Bassett who gave orders for an updated type & screen then to transfuse 2 units of PRBC. Orders noted and carried out.
[2020-03-21] MEDS: IV D5/0.45 NACL 1,000 ML IV PRN ×2 (06:16→16:14)
[2020-03-21 06:32] LABS: LYMPHOCYTES % (MANUAL) 3 % (16-48); MONOCYTES % (MANUAL) 4 % (0-11.0); NEUTROPHILS % (MANUAL) 93 (42-76)
[2020-03-21 06:51] LABS: ALANINE AMINOTRANSFERASE 21 U/L (12-78); ALBUMIN 1.7 g/dL (3.4-5.0); ALKALINE PHOSPHATASE 72 U/L (46-116); ASPARTATE AMINOTRANSFERASE 32 U/L (15-37); BILIRUBIN,TOTAL 0.1 mg/dL (0.2-1.0); CALCIUM, SERUM 8.6 mg/dL (8.5-10.1); CARBON DIOXIDE 23 mmol/L (21-32); CHLORIDE 121 mmol/L (98-107); CREATININE 1.9 mg/dL (0.6-1.3); GLUCOSE 136 mg/dL (74-106); MAGNESIUM 2.7 mg/dL (1.8-2.4); PHOSPHORUS 3.6 mg/dL (2.5-4.9); POTASSIUM 3.6 mmol/L (3.5-5.1); TOTAL PROTEIN, SERUM 6.7 g/dL (6.4-8.2); UREA NITROGEN, BLOOD 43 mg/dL (7-18)
--- NOTE | 2020-03-21 06:52 | NUR ---
SOFTWARE DEVELOPMENT COORDINATOR CLOSING NOTES: Pt remains stable throughout shift. Intubated and sedated. No SOB or resp distress noted. No acute changes noted. SR w/ PAC's on tele monitor. Diprivan infusing at 20mcg/kg/min. D5 1/2NS infusing at 100ml/hr, tolerating well. Bilat soft wrist restraints remain in place. GT site patent and flushed. Campos cath patent and draining urine via gravity. All meds administered as ordered. Kept clean/dry. Safety measures in place. Will endorse to AM nurse for MONA.
[2020-03-21 07:04] LABS: SODIUM SERUM 156 mmol/L (136-145)
--- NOTE | 2020-03-21 07:20 | NUR ---
RN OPENING NOTE: Received patient in bed and sedated. Currently mechanically ventilated and tolerating settings. Saturation @ 100%. No SOB and not in respiratory distress. Tele monitor showing sinus rhythm with PACs in the 60s. Iv sites clean, dry, patent and intact. IV infusion of D51/2NS @ 100mls and Propofol @ 20mcg/kg/min being tolerated well. No pain noted on patient. Campos catheter patent and in place, draining yellow urine. Patient reported to have hgb of 5.8 and for 2 units of Blood transfusion. Call light in reach. Bed locked, low and at semi-vicente's position. Side rails up x3. Safety ensured and observed. Will continue to monitor.
[2020-03-21] MEDS: ACETYLCYSTEINE 10% SOLN 400 MG/4 ML VIAL NEB SCH ×3 (07:58→23:26)
--- NOTE | 2020-03-21 07:58 | NUR ---
RT RECEIVED PT ORALLY INTUBATED W/ 6.5 ETT MARKED @ 24CM LIP LINE. FLOUR DISTRIBUTOR DONE AND TUBE IS SECURED W/ ANCHOR FAST. VENT ALARMS CHECKED AND AUDIBLE. VENT IS PLUGGED IN RED OUTLET. DOMINIQUE B/S. SX WITH MOD THK BOBO SECRETIONS. PT TOLERATING SETTINGS WELL. BREATHING TX GIVEN. NO ADV REACTION. AMBU BAG NOTED HOB. NO SOB OR RESP DISTRESS NOTED. WILL CONTINUE TO MONITOR T/O SHIFT.
[2020-03-21] MEDS: DOCUSATE SODIUM LIQ 100 MG/10 ML UDC GT SCH (08:36)
[2020-03-21] MEDS: MULTIVIT W/MINERALS 1 TAB TABLET GT SCH (08:36)
[2020-03-21] MEDS: FERROUS SULFATE UDC 300 MG/5 ML UDC GT SCH (08:36)
[2020-03-21] MEDS: CHOLECALCIFEROL 1,000 UNIT TABLET (VIT D3) GT SCH (08:36)
[2020-03-21] MEDS: PANTOPRAZOLE 40 MG/PACK PACK GT SCH ×2 (08:36→17:17)
[2020-03-21] MEDS: AMLODIPINE BESYLATE 10 MG TABLET NG SCH (08:37)
[2020-03-21] MEDS: CITALOPRAM HYDROBROMIDE 10 MG TABLET NG SCH (08:37)
[2020-03-21 08:46] LABS: ABG BASE EXCESS -1.3 mmol/L; ABG OXYGEN SATURATION 99.4 % (92.0-98.5); ABG PCO2 37.8 mmHg (35.0-45.0); ABG PH 7.406 (7.350-7.450); ABG PO2 227.9 mmHg (75.0-100.0); AaDO2 86.1 mmHg; COHb 0.2 % (0.5-1.5); MetHb 0.4 % (0.0-1.5); O2Hb 98.8 % (94.0-97.0); SITE, ABG Left Radial; VENT MODE, BG AC 20 450 50% 0
--- NOTE | 2020-03-21 09:10 | NUR ---
RT ABG DRAWN AND RESULTS RELAYED TO MD AND RN. PER MD, DECREASE FIO2 TO 35%. RN AWARE.
[2020-03-21] MEDS: PROPOFOL 100 ML IV PRN ×2 (09:30→19:28)
--- NOTE | 2020-03-21 09:42 | NUR ---
RN NOTE: Patient started Blood Transfusion at 0939. No ASE noted. Vital signs stable. Will continue to monitor. Spoke to Rosendo Vazquez earlier and informed of patient's Blood Transfusion. He acknowledged and agreed to the procedure.
[2020-03-21] MEDS: FLUTICASONE PROPIONATE 16 GM BOTTLE NS SCH (10:00)
--- NOTE | 2020-03-21 12:21 | NUR ---
RN NOTE: Patient currently has 2 IV hydration orders active: NS @ 100mls/hr and D5 1/2NS @100mls/hr. Informed Dr. Freedman about situation and asked for clarification of orders. NS @ 100mls/hr was ordered to be discontinued and the other to continue. Orders noted and carried out.
--- NOTE | 2020-03-21 12:44 | NUR ---
rn note: unit 1 of 2 transfused. No ASE noted, V/S within normal limit throughout transfusion time. Patient tolerated transfusion well. Will transfuse unit 2 of 2 later on shift.
--- NOTE | 2020-03-21 16:08 | NUR ---
rn note: Confirmed with Dr. Peters that patient is ok to resume tube feeding but per Dr. Mallory, patient should still be NPO.
--- NOTE | 2020-03-21 18:25 | NUR ---
BLOW MOULDING MACHINE OPERATOR NOTES 2ND UNIT WAS TRANSFUSED SUCCESSFULLY. NO ADVERSE REACTIONS NOTED. WILL CONTINUE TO MONITOR
--- NOTE | 2020-03-21 19:11 | NUR ---
LEARNING DISABILITIES RESOURCE TEACHER OPENING NOTES: Rec'd pt in bed, intubated 6.5/24cm at the lip. On mechanical ventilation tolerating settings well. No SOB or resp distress noted. SR on tele monitor. LH #22, LAC #20 and DONNA PICC line patent and flushed. Dressings c/d/i. Diprivan infusing at 25mcg/kg/min, pt sedated. D5 1/2NS infusing at 100ml/hr. TRIM TECHNICIAN restraints in place. Will release per protocol. NPO except meds. GT site patent and flushed. Campos cath in place patent and draining urine via gravity. Safety measures in place. Will continue to monitor.
--- NOTE | 2020-03-21 19:29 | NUR ---
RN CLOSING NOTE: Patient remains in bed and sedated. Currently mechanically ventilated and tolerating settings. Saturation @ 100%. No SOB and not in respiratory distress. Tele monitor showing sinus rhythm with PACs in the 60s. Iv sites clean, dry, patent and intact. IV infusion of D51/2NS @ 100mls and Propofol @ 25mcg/kg/min being tolerated well. No pain noted on patient. Campos catheter patent and in place, draining yellow urine. s/p 2 units of Blood transfusion, patient tolerated it well. No ASE noted, will continue to monitor. Call light in reach. Bed locked, low and at semi-vicente's position. Side rails up x3. Safety ensured and observed. Treatment given. Due medication given. Endorsed to oncoming shift for MONA.
--- NOTE | 2020-03-21 20:11 | NUR ---
RECEIVED PT INTUBATED 6.5 ETT @23CM AT THE LIP VIA ANCHOR FAST. NO RESP DISTRESS NOTED. PT TOLERATING VENT SETTINGS. SX'D SML AMT OF THICK WHITE SECRETIONS. VENT ALARMS SET AND AUDIBLE. AMBU BAG AT BEDSIDE. CONTINUE [facility] VENT SUPPORT. Addendum: 03/21/20 at 2013 by JOSE LUIS PEREIRA RT Amended: Links added.
[2020-03-21] MEDS: TAMSULOSIN 0.4 MG CAP.SR.24H GT SCH (21:06)
[2020-03-21] MEDS: SENNOSIDES 8.6 MG TABLET GT SCH (21:06)
[2020-03-21] MEDS: ATORVASTATIN 10 MG TABLET GT SCH (21:06)
[2020-03-21] MEDS: MIRTAZAPINE 15 MG TABLET GT SCH (21:06)
[2020-03-22] VITALS (25 sets, daily range): BP systolic 123–171; BP diastolic 52–90
[2020-03-22] MEDS: IV D5/0.45 NACL 1,000 ML IV PRN ×3 (02:12→21:50)
[2020-03-22] MEDS: ALBUTEROL HALF STRENGTH 1.25 MG/3 ML VIAL.NEB NEB SCH ×6 (03:22→23:43)
[2020-03-22] MEDS: IPRATROPIUM NEB FS 0.5 MG/2.5 ML AMPUL.NEB NEB SCH ×6 (03:23→23:43)
[2020-03-22] MEDS: PROPOFOL 100 ML IV PRN (04:02)
[2020-03-22] MEDS: HYDROCORTISONE SOD SUCCINATE 100 MG/2 ML VIAL IV SCH ×3 (05:11→20:35)
[2020-03-22 05:57] LABS: BASOPHILS # (AUTO) 0.1 /CMM (0.0-0.2); BASOPHILS % (AUTO) 0.7 % (0.0-2.0); HEMATOCRIT 25 % (39-51); HEMOGLOBIN 7.8 g/dL (13.5-17.5); LYMPHOCYTES # (AUTO) 0.7 /CMM (0.8-4.8); LYMPHOCYTES % (AUTO) 3.9 % (20.0-44.0); MEAN CORPUSCULAR HGB CONC 32 g/dl (31.0-36.0); MEAN CORPUSCULAR VOLUME 80 fL (80-96); MONOCYTES # (AUTO) 0.9 /CMM (0.1-1.30); MONOCYTES % (AUTO) 5.2 % (2.0-12.0); NEUTROPHILS # (AUTO) 15.5 /CMM (1.8-8.9); NEUTROPHILS % (AUTO) 90.2 % (43.0-81.0); PLATELET COUNT (AUTO) 155 /CMM (150-450); RED BLOOD CELL COUNT(AUTO) 3.11 MIL/uL (4.5-6.0); WHITE BLOOD COUNT (AUTO) 17.2 K/uL (4.3-11.0)
[2020-03-22 06:09] LABS: CALCIUM, SERUM 8.4 mg/dL (8.5-10.1); CARBON DIOXIDE 25 mmol/L (21-32); CHLORIDE 119 mmol/L (98-107); CREATININE 1.4 mg/dL (0.6-1.3); GLUCOSE 109 mg/dL (74-106); POTASSIUM 2.9 mmol/L (3.5-5.1); SODIUM SERUM 153 mmol/L (136-145); UREA NITROGEN, BLOOD 31 mg/dL (7-18)
--- NOTE | 2020-03-22 06:53 | NUR ---
DIRECTOR FOOD AND BEVERAGE CLOSING NOTES: Pt remains in stable condition throughout shift. No acute changes noted. Continues on mechanical ventilation tolerating settings well. No SOB or resp distress noted. SR w/ PAC's on tele monitor. D5 1/2NS infusing at 100ml/hr. Diprivan infusing at 30mcg/kg/min, sedated. SANDFILL OPERATOR restraints in place. All meds administered as ordered. Kept clean/dry. Safety measures in place. Will endorse to AM nurse for MONA.
--- NOTE | 2020-03-22 07:15 | NUR ---
RN INITIAL NOTES RECEIVED PT INTUBATED, ON VENT. NO RESPIRATORY DISTRESS NOTED. NO SOB NOTED. HOB ELEVATED. NO SIGNS OF PAIN NOTED. PT SEDATED, ON DIPRIVAN AT 30MCG/KG/MIN. FOR SIMV TRIAL TODAY. GT CLAMPED. IVF INFUSING. BRYAN IN PLACE. BLE ELEVATED. WILL MONITOR
[2020-03-22] MEDS: ACETYLCYSTEINE 10% SOLN 400 MG/4 ML VIAL NEB SCH ×3 (07:35→23:43)
[2020-03-22] MEDS: AMLODIPINE BESYLATE 10 MG TABLET NG SCH (09:06)
[2020-03-22] MEDS: DOCUSATE SODIUM LIQ 100 MG/10 ML UDC GT SCH (09:06)
[2020-03-22] MEDS: FERROUS SULFATE UDC 300 MG/5 ML UDC GT SCH (09:06)
[2020-03-22] MEDS: CHOLECALCIFEROL 1,000 UNIT TABLET (VIT D3) GT SCH (09:06)
[2020-03-22] MEDS: PANTOPRAZOLE 40 MG/PACK PACK GT SCH ×2 (09:06→17:18)
[2020-03-22] MEDS: MULTIVIT W/MINERALS 1 TAB TABLET GT SCH (09:06)
[2020-03-22] MEDS: CITALOPRAM HYDROBROMIDE 10 MG TABLET NG SCH (09:06)
[2020-03-22] MEDS: FLUTICASONE PROPIONATE 16 GM BOTTLE NS SCH (09:07)
[2020-03-22 11:05] LABS: ABG BASE EXCESS -2.6 mmol/L; ABG OXYGEN SATURATION 98.6 % (92.0-98.5); ABG PH 7.409 (7.350-7.450); ABG PO2 133.9 mmHg (75.0-100.0); COHb 0.3 % (0.5-1.5); MetHb 0.3 % (0.0-1.5); PEEP,BG 5 cm H2O; SITE, ABG Right Radial; VENT MODE, BG SIMV 4 PSV 10; VT, ABG 450 mL
[2020-03-22] MEDS: POTASSIUM CHLORIDE 20 MEQ POWDER PACKET GT SCH ×3 (11:28→13:59)
[2020-03-22] MEDS ORDERED: DC PROPOFOL WHEN EXTUBATED XX PRN (12:00)
--- NOTE | 2020-03-22 12:00 | NUR ---
RN NOTES [address] COTTO. PT OFF SEDATION. PT AWAKE, FOLLOWS SIMPLE COMMANDS. WILL PUT ON SIMV MODE. WILL CLOSELY MONITOR [address] COTTO NOTIFIED. ORDERED EXTUBATION. [address] CAROLYNE WHEATLEY. AWARE OF CURRENT LAB VALUES AND CXR RESULT. PT FOR EXTUBATION. NO ORDER MADE 1153 P EXTUBATED. PLACED ON 02 VIA NC AT 3LPM. HOB ELEVATED. PT AWAKE, A/OX2. NO SIGNS OF RESPIRATORY DISTRESS NOTED. WILL CLOSELY MONITOR
--- NOTE | 2020-03-22 18:27 | NUR ---
RN CLOSING NOTES PT AWAKE, A/OX2. ON ROOM AIR. NO RESPIRATORY DISTRESS NOTED. NO SOB NOTED. IVF INFUSING. KEPT COMFORTABLE. BLE ELEVATED. CALL LIGHT WITHIN REACH. WILL ENDORSE FOR CONTINUITY OF CARE.
--- NOTE | 2020-03-22 19:52 | NUR ---
LICENSING REGISTRATION EXAMINER RCD PT W/DX RESP FAIL PT IS EXTUBATED TODAY ON ROOM AIR. PT IS ALERT AND ABLE TO FOLLOW COMMANDS. NSR ON MONITOR. BRYAN CATH IN PLACE DRAINING CLEAR YELLOW URINE. SCARRING ON BUTTOCKS AND THIGHS. NPO X MEDS AT THIS TIME. DONNA PICC LINE W/ D5 1/2 NS @ 100 ML/HR.
--- NOTE | 2020-03-22 20:55 | NUR ---
Rec'd report from MONY Sanders for MONA.
[2020-03-22] MEDS: SENNOSIDES 8.6 MG TABLET GT SCH (22:12)
[2020-03-22] MEDS: MIRTAZAPINE 15 MG TABLET GT SCH (22:12)
[2020-03-22] MEDS: TAMSULOSIN 0.4 MG CAP.SR.24H GT SCH (22:12)
[2020-03-22] MEDS: ATORVASTATIN 10 MG TABLET GT SCH (22:13)
[2020-03-23] VITALS (25 sets, daily range): BP systolic 124–166; BP diastolic 60–98
[2020-03-23] MEDS: ALBUTEROL HALF STRENGTH 1.25 MG/3 ML VIAL.NEB NEB SCH ×6 (03:23→23:15)
[2020-03-23] MEDS: IPRATROPIUM NEB FS 0.5 MG/2.5 ML AMPUL.NEB NEB SCH ×6 (03:23→23:15)
[2020-03-23 04:01] LABS: BASOPHILS % (AUTO) 0.1 % (0.0-2.0); HEMATOCRIT 25 % (39-51); HEMOGLOBIN 7.8 g/dL (13.5-17.5); LYMPHOCYTES # (AUTO) 0.4 /CMM (0.8-4.8); LYMPHOCYTES % (AUTO) 2.7 % (20.0-44.0); MEAN CORPUSCULAR HGB CONC 31 g/dl (31.0-36.0); MEAN CORPUSCULAR VOLUME 80 fL (80-96); MONOCYTES # (AUTO) 0.9 /CMM (0.1-1.30); MONOCYTES % (AUTO) 5.6 % (2.0-12.0); NEUTROPHILS % (AUTO) 91.6 % (43.0-81.0); PLATELET COUNT (AUTO) 146 /CMM (150-450); RED BLOOD CELL COUNT(AUTO) 3.12 MIL/uL (4.5-6.0); WHITE BLOOD COUNT (AUTO) 15.2 K/uL (4.3-11.0)
[2020-03-23 04:22] LABS: CALCIUM, SERUM 8.4 mg/dL (8.5-10.1); CARBON DIOXIDE 25 mmol/L (21-32); CHLORIDE 117 mmol/L (98-107); CREATININE 1.3 mg/dL (0.6-1.3); GLUCOSE 97 mg/dL (74-106); MAGNESIUM 2.2 mg/dL (1.8-2.4); PHOSPHORUS 2.4 mg/dL (2.5-4.9); POTASSIUM 3.4 mmol/L (3.5-5.1); SODIUM SERUM 151 mmol/L (136-145); UREA NITROGEN, BLOOD 24 mg/dL (7-18)
[2020-03-23] MEDS: HYDROCORTISONE SOD SUCCINATE 100 MG/2 ML VIAL IV SCH ×3 (04:36→20:35)
--- NOTE | 2020-03-23 06:59 | NUR ---
FORK OPERATOR CLOSING NOTES: Pt remains stable throughout shift. On RA, tolerating well. No SOB or resp distress noted. No acute changes noted throughout shift. SR/SB on tele monitor. D5 1/2NS infusing at 100ml/hr. Campos cath patent and draining. All meds given as ordered. Safety measures in place. Will endorse to AM nurse for MONA.
[2020-03-23] MEDS: ACETYLCYSTEINE 10% SOLN 400 MG/4 ML VIAL NEB SCH ×3 (07:35→23:15)
--- NOTE | 2020-03-23 07:42 | NUR ---
RN OPENING NOTES RECEIVED PATIENT RESTING IN BED, A/O X2, ABLE TO MAKE NEEDS KNOWN. S/P EXTUBATION ON 03/22/20, CURRENTLY ON ROOM AIR, TOLERATING WELL, SATURATION AT 98%, NO SIGNS OF RESPIRATORY DISTRESS NOTED, BREATHING IS EVEN AND UNLABORED. ON TELE MONITOR WITH SR NOTED, HR AT 63BPM. PER PM NURSE PATIENT GOES TO SB IN THE 40S, MD IS AWARE. PATIENT HAS A BRYAN CATHETER IN PLACE, INTACT, AND DRAINING URINE. IV ACCESS ON DONNA: PICC LINE, LEFT HAND: #22, LEFT AC#20, ALL INTACT, PATENT, AND FLUSHED WELL. NO SIGNS AND SYMPTOMS OF INFECTION NOTED. ALL PATIENT NEEDS MET, CALL LIGHT WITHIN REACH, WILL CONTINUE TO MONITOR CLOSELY.
[2020-03-23] MEDS: DOCUSATE SODIUM LIQ 100 MG/10 ML UDC GT SCH (08:03)
[2020-03-23] MEDS: PANTOPRAZOLE 40 MG/PACK PACK GT SCH ×2 (08:11→16:41)
[2020-03-23] MEDS: CHOLECALCIFEROL 1,000 UNIT TABLET (VIT D3) GT SCH (08:11)
[2020-03-23] MEDS: MULTIVIT W/MINERALS 1 TAB TABLET GT SCH (08:11)
[2020-03-23] MEDS: CITALOPRAM HYDROBROMIDE 10 MG TABLET NG SCH (08:11)
[2020-03-23] MEDS: FERROUS SULFATE UDC 300 MG/5 ML UDC GT SCH (08:11)
[2020-03-23] MEDS: AMLODIPINE BESYLATE 10 MG TABLET NG SCH (08:11)
[2020-03-23] MEDS: FLUTICASONE PROPIONATE 16 GM BOTTLE NS SCH (08:12)
[2020-03-23] MEDS: EPOETIN ALFA (4000 UNIT) 4,000 UNIT/ML VIAL SQ SCH (08:17)
[2020-03-23] MEDS: IV D5/0.45 NACL 1,000 ML IV PRN ×2 (08:27→20:50)
[2020-03-23] MEDS ORDERED: POTASSIUM PHOSPHATE MM 15 MMOL in IV NS 0.9% 250 ML IV SCH (10:30)
[2020-03-23] MEDS ORDERED: POTASSIUM PHOSPHATE MM 7.5 MMOL in IV NS 0.9% 100 ML IV SCH (10:30)
[2020-03-23] MEDS: POTASSIUM CL. PREMIX PERIPHER. 50 ML IV SCH ×2 (10:43→11:50)
--- NOTE | 2020-03-23 12:00 | NUR ---
RN NOTE ROUNDED WITH KATARZYNA WAITE TO DOWNGRADE PATIENT TO TELEMETRY STATUS. SPOKE TO MD REGARDING THE PATIENT DIET ORDER, PATIENT HAS BEEN NPO, MD WILL LOOK INTO IT AND WILL PUT NEW ORDERS REGARDING PATIENT FEEDING. SAFETY MAINTAINED, CALL LIGHT WITHIN REACH, WILL CONTINUE TO MONITOR CLOSELY.
--- NOTE | 2020-03-23 18:41 | NUR ---
RN CLOSING NOTES NO ACUTE CHANGES TO PATIENT CONDITION DURING MY SHIFT. PATIENT REMAINED ON ROOM AIR, SATURATING WELL, WITH NO RESPIRATORY DISTRESS NOTED. BREATHING IS EVEN AND UNLABORED. REMAINED SINUS RHYTHM ON TELE MONITOR. ALL SCHEDULED MEDICATIONS GIVEN ON TIME. KEPT CLEAN AND DRY, SAFETY MAINTAINED, CALL LIGHT WITHIN REACH, WILL ENDORSE TO PM NURSE FOR CONTINUITY OF CARE.
--- NOTE | 2020-03-23 19:04 | NUR ---
ENDORSED PATIENT TO PM NURSE FOR CONTINUITY OF CARE.
--- NOTE | 2020-03-23 19:35 | NUR ---
PERMIT REVIEW ASSISTANT NOTES, RECEIVED PATIENT IN BED WATCHING TV, A/O X2, ABLE TO VERBALIZE NEEDS AND CONCERNS, S/P EXTUBATION ON 03/22/20, CURRENTLY ON ROOM AIR, SATING WELL, BREATHING EVEN AND UNLABORED, NO S/S OF RESPIRATORY DISTRESS NOTED AT THIS TIME, SR ON TELE NOTED, HR AT 60SBPM AT THIS TIME, IV ACCESS ON DONNA: PICC LINE, LEFT HAND: #22, LEFT AC#20, ALL PATENT AND INTACT, NO S/S OF INFILTRATION NOTED, BRYAN CATHETER IN PLACE, PATENCY INTACT, DRAINING YELLOW URINE, ALL NEED PROVIDED, CALL LIGHT WITHIN REACH, WILL CONTINUE TO MONITOR PATIENT CLOSELY.
--- NOTE | 2020-03-23 20:46 | NUR ---
RECEIVED PT ON ROOM AIR. PT IS AWAKE NO SOB. O2 SAT 99%. PT IS RECEIVING Q4 BREATHING TX.
[2020-03-23] MEDS: TAMSULOSIN 0.4 MG CAP.SR.24H GT SCH (21:00)
[2020-03-23] MEDS: ATORVASTATIN 10 MG TABLET GT SCH (21:01)
[2020-03-23] MEDS: MIRTAZAPINE 15 MG TABLET GT SCH (21:01)
[2020-03-23] MEDS: SENNOSIDES 8.6 MG TABLET GT SCH (21:03)
[2020-03-24] VITALS (9 sets, daily range): BP systolic 125–161; BP diastolic 60–83
[2020-03-24] MEDS: ALBUTEROL HALF STRENGTH 1.25 MG/3 ML VIAL.NEB NEB SCH ×6 (03:31→22:44)
[2020-03-24] MEDS: IPRATROPIUM NEB FS 0.5 MG/2.5 ML AMPUL.NEB NEB SCH ×6 (03:31→22:44)
[2020-03-24] MEDS: HYDROCORTISONE SOD SUCCINATE 100 MG/2 ML VIAL IV SCH ×3 (04:28→21:56)
[2020-03-24 04:40] LABS: CALCIUM, SERUM 8.3 mg/dL (8.5-10.1); CREATININE 1.2 mg/dL (0.6-1.3); PHOSPHORUS 2.9 mg/dL (2.5-4.9); POTASSIUM 2.9 mmol/L (3.5-5.1)
[2020-03-24 05:04] LABS: BASOPHILS % (AUTO) 0.1 % (0.0-2.0); HEMATOCRIT 28 % (39-51); HEMOGLOBIN 8.9 g/dL (13.5-17.5); LYMPHOCYTES # (AUTO) 0.5 /CMM (0.8-4.8); LYMPHOCYTES % (AUTO) 3.5 % (20.0-44.0); MEAN CORPUSCULAR HGB CONC 32 g/dl (31.0-36.0); MEAN CORPUSCULAR VOLUME 80 fL (80-96); MONOCYTES % (AUTO) 7.3 % (2.0-12.0); NEUTROPHILS # (AUTO) 12.4 /CMM (1.8-8.9); NEUTROPHILS % (AUTO) 89.1 % (43.0-81.0); PLATELET COUNT (AUTO) 145 /CMM (150-450); RED BLOOD CELL COUNT(AUTO) 3.46 MIL/uL (4.5-6.0)
[2020-03-24] MEDS ORDERED: POTASSIUM CHLORIDE 10 MEQ/50 ML PREMIXED IVPB FOR PERIPHERAL LINE IV ONE (06:30)
--- NOTE | 2020-03-24 06:35 | NUR ---
AIRLINE ATTENDANT NOTES, NOTED WITH LOW POTASSIUM THIS MORNING 2.[address] MALIN AND REPLIED WITH ORDER TO ADMINISTER 60 MEQ OF POTASSIUM CHLORIDE, NOTED AND CARRIED OUT, BESIDE THAT NO SIGNIFICANT CHANGE IN CONDITION, A/O X2, ABLE TO VERBALIZE NEEDS AND CONCERNS, CONTINUE ON ROOM AIR, SATING WELL, BREATHING EVEN AND UNLABORED, NO S/S OF RESPIRATORY DISTRESS NOTED AT THIS TIME, CONTINUE SR ON TELE NOTED, HR AT 40S-60S THROUGHOUT THE NIGHT, GOOD OUTPUT VIA F/C, PATENCY INTACT, CALL LIGHT WITHIN REACH, WILL ENDORSE CONTINUITY OF CARE TO ONCOMING NURSE.
[2020-03-24] MEDS: IV D5/0.45 NACL 1,000 ML IV PRN ×2 (06:47→23:28)
[2020-03-24] MEDS ORDERED: POTASSIUM CL. PREMIX PERIPHER. 50 ML IV SCH ×2 (07:00)
--- NOTE | 2020-03-24 07:45 | NUR ---
GRANITE SANDBLASTER APPRENTICE NOTES RECEIVED PATIENT IN BED, ALERT AND AWAKE ORIENTED X2. NO SOB. DENIES ANY C/O PAIN NOR DISCOMFORT AT THIS TIME. INDEPENDENT WITH BED MOBILITY. BRYAN CATHETER INTACT AND PATENT DRAINING YELLOW COLORED URINE VIA BEDSIDE. ON TELE MONITORING NSR. DONNA PICC LINE INTACT AND PATENT INFUSING D5 1/2 NS AT 100 ML/HR. GT INTACT AND PATENT. NO RESIDUAL OBSERVED. BED IN LOWEST POSITION, LOCKED. BED ALARM ON FREQUENT VISUAL CHECK DONE.
[2020-03-24] MEDS: ACETYLCYSTEINE 10% SOLN 400 MG/4 ML VIAL NEB SCH ×3 (08:07→22:45)
--- NOTE | 2020-03-24 08:24 | NUR ---
WOUND CARE CONSULT: PT PRESENTS WITH MULTIPLE AREAS OF SCARRING INCLUDING SACRUM AND BUTTOCKS, PRESENT ON ADMISSION. PT IS ABLE TO ASSIST WITH TURNING AND REPOSITIONING IN BED. IRVIN VILLANUEVA NOTED. RECOMMENDATIONS MADE FOR SKIN PROTECTION. DISCUSSED WITH NURSING STAFF. WILL SEE PRN. COHEN IN AGREEMENT WITH PLAN OF CARE. Addendum: 03/24/20 at 0825 by AJ FREEMAN WNDNU Amended: Links added.
[2020-03-24] MEDS: POTASSIUM CL. PREMIX PERIPHER. 50 ML IV SCH ×6 (08:26→15:32)
[2020-03-24] MEDS: AMLODIPINE BESYLATE 10 MG TABLET NG SCH (09:16)
[2020-03-24] MEDS: CHOLECALCIFEROL 1,000 UNIT TABLET (VIT D3) GT SCH (09:16)
[2020-03-24] MEDS: FERROUS SULFATE UDC 300 MG/5 ML UDC GT SCH (09:16)
[2020-03-24] MEDS: MULTIVIT W/MINERALS 1 TAB TABLET GT SCH (09:16)
[2020-03-24] MEDS: DOCUSATE SODIUM LIQ 100 MG/10 ML UDC GT SCH (09:16)
[2020-03-24] MEDS: PANTOPRAZOLE 40 MG/PACK PACK GT SCH ×2 (09:16→16:20)
[2020-03-24] MEDS: CITALOPRAM HYDROBROMIDE 10 MG TABLET NG SCH (09:17)
[2020-03-24] MEDS: FLUTICASONE PROPIONATE 16 GM BOTTLE NS SCH (09:22)
--- NOTE | 2020-03-24 13:25 | NUR ---
FLOWER GRADER NOTES PATIENT TRANSFERRED TO [address] [place] [address] REPORT GIVEN TO ANDERS FOR CONTINUATION OF CARE. PATIENT TRANSFERRED PER [facility] PROTOC[facility]. REMAINS IN STABLE CONDITION.
--- NOTE | 2020-03-24 13:30 | NUR ---
CARDING SUPERVISOR NOTES RECEIVED PT FROM ICU NURSE AUDIE VIA BED, PT IS AWAKE, ALERT AND VERBALLY RESPONSIVE, NOT IN DISTRESS, NO SIGN OF PAIN, IV FLUIDS INFUSING WELL, CALL LIGHT WITHIN REACH, BED ALARM ON, NEEDS ATTENDED, KEPT CLEAND AND COMFORTABLE.
[2020-03-24] MEDS: OSMOLITE 1.2 CAL 1,000 ML LIQUID GT PRN (18:00)
--- NOTE | 2020-03-24 18:13 | NUR ---
TERRITORY ACCOUNT EXECUTIVE NOTES PT IN BED, AWAKE, ALERT AND VERBALLY RESPONSIVE, NO SIGN OF PAIN OR DISTRESS, STARTED GT FEEDING, TOLERATING WELL, KEPT HOB ELEVATED, BED ALARM ON, PM CARE PROVIDED, KEPT WARM AND COMFORTABLE IN BED, NEEDS ATTENDED.
--- NOTE | 2020-03-24 19:59 | NUR ---
RN OPENING NOTES: RECEIVED REPORT AND TRANSFERRED PATIENT FROM [facility] TO [facility] ( 322-1-2 TO 119-1) VIA MEDICAL BED. PATIENT A/OX2-3, IN NO S/SX OF ACUTE DISTRESS AT THIS TIME. NO SOB NOTED. PATIENT'S BREATHING IS EVEN AND UNLABORED. PATIENT IS ON RA ; TOLERATING WELL. SATURATING @ 99% AT TIME OF RECEIVED. PATIENT ON TELE MONITORING READING SINUS RHYTHM HR IS @68. PATIENT HAS GTUBE FLUSHING AND PATENT; SITE CLEAN DRY AND INTACT; NO RESIDUAL NOTED; WITH RUNNING FEEDING OF OSMOLITE 1.2 @ 30MLS/HR WITH GOAL OF 50ML/HR. NOTED IV SITE ON R UA PICC LINE; PATENT, INTACT AND FLUSHING WELL WITH RUNNING IV FLUID OF D5 1/2 NS @100MLS/HR. BRYAN CATH IN PLACE, WITH MODERATE URINE OUTPUT NOTED.SAFETY MEASURES HAVE BEEN PROVIDED AND IMPLEMENTED. PATIENT BED ALARM IS ON. HEAD OF BED ELEVATED. BED IS LOCKED, IN LOWEST POSITION AND SIDE RAILS UP. CALL LIGHT WITHIN REACH OF THE PATIENT. ISOLATION PRECAUTIONS IN PLACE. WILL CONTINUE TO MONITOR AND REASSESS FOR ANY CHANGES.
[2020-03-24] MEDS ORDERED: DILTIAZEM HCL 50 MG IV IV PRN (21:00)
[2020-03-24] MEDS: TAMSULOSIN 0.4 MG CAP.SR.24H GT SCH (21:54)
[2020-03-24] MEDS: MIRTAZAPINE 15 MG TABLET GT SCH (21:55)
[2020-03-24] MEDS: ATORVASTATIN 10 MG TABLET GT SCH (21:55)
[2020-03-24] MEDS: SENNOSIDES 8.6 MG TABLET GT SCH (21:55)
[2020-03-25] VITALS (7 sets, daily range): BP systolic 126–157; BP diastolic 62–84
--- NOTE | 2020-03-25 02:00 | NUR ---
RN NOTES INCREASED GTUBE FEEDING OF OSMOLITE 1.2 FROM 30MLS/HR TO 40MLS HR; WITH GOAL OF 50ML/HR IF WELL TOLERATED. PATIENT TOLERATES FEEDING. WILL CONTINUE TO MONITOR. CONSTRUCTION LINEMAN MADE AWARE.
[2020-03-25] MEDS: IPRATROPIUM NEB FS 0.5 MG/2.5 ML AMPUL.NEB NEB SCH ×5 (03:00→21:30)
[2020-03-25] MEDS: ALBUTEROL HALF STRENGTH 1.25 MG/3 ML VIAL.NEB NEB SCH ×5 (03:01→21:30)
[2020-03-25] MEDS: HYDROCORTISONE SOD SUCCINATE 100 MG/2 ML VIAL IV SCH ×2 (05:53→13:10)
--- NOTE | 2020-03-25 06:47 | NUR ---
RN CLOSING NOTES PATIENT REMAINS IN ROOM IN NO SIGNS OF RESPIRATORY DISTRESS. PATIENT SATURATING 99%. VITAL SIGNS WNL. IV LINE MAINTAINED, INTACT, PATENT AND FLUSHING WITH CURRENT RUNNING IVF ORDERED. GTUBE FEEDING RUNNING ( OSMOLITE 1.2 @ 40ML/HR with GOAL OF 50MLS/HR. SAFETY PRECAUTIONS IN PLACE AND COMFORT MEASURES RENDERED. BED IN LOWEST POSITION, CALL LIGHT WITHIN REACH, BREAKS ON, SIDE RAILS UP. ALL NEEDS ATTENDED, MEDICATIONS GIVEN SCHEDULED AND ORDERED ; SHIFT ASSESSMENT/BEDBATH/SKIN CARE DONE. PATIENT KEPT CLEAN AND DRY. WILL ENDORSE TO INCOMING SHIFT FOR MONA.
[2020-03-25 07:14] LABS: CALCIUM, SERUM 8.2 mg/dL (8.5-10.1); CREATININE 1.2 mg/dL (0.6-1.3); PHOSPHORUS 2.7 mg/dL (2.5-4.9); POTASSIUM 2.9 mmol/L (3.5-5.1)
[2020-03-25] MEDS: ACETYLCYSTEINE 10% SOLN 400 MG/4 ML VIAL NEB SCH ×2 (07:55→15:47)
--- NOTE | 2020-03-25 08:00 | NUR ---
CAP AND HAT PRODUCTION SUPERVISOR NOTE PATIENT IN BED,ALERT WITH CONFUSION ON TELE MONITOR SR HR 61 AT THIS TIME, WITH BRYAN CATH TO GRAVITY , ON G TUBE FEEDING ORDERED, NO RESIDUAL NOTED, CALL LIGHT WITHIN REACH, BED IN LOWEST AND LOCKED POSITION,RT UA PICC LINE IN PLACE, ON IVF ORDERED WILL CONT TO MONITOR
[2020-03-25] MEDS: DOCUSATE SODIUM LIQ 100 MG/10 ML UDC GT SCH (08:26)
[2020-03-25] MEDS: CHOLECALCIFEROL 1,000 UNIT TABLET (VIT D3) GT SCH (08:26)
[2020-03-25] MEDS: FERROUS SULFATE UDC 300 MG/5 ML UDC GT SCH (08:26)
[2020-03-25] MEDS: PANTOPRAZOLE 40 MG/PACK PACK GT SCH ×2 (08:26→17:07)
[2020-03-25] MEDS: MULTIVIT W/MINERALS 1 TAB TABLET GT SCH (08:26)
[2020-03-25] MEDS: CITALOPRAM HYDROBROMIDE 10 MG TABLET NG SCH (08:27)
[2020-03-25] MEDS: FLUTICASONE PROPIONATE 16 GM BOTTLE NS SCH (08:27)
[2020-03-25] MEDS: AMLODIPINE BESYLATE 10 MG TABLET NG SCH (08:27)
[2020-03-25] MEDS: POTASSIUM CHLORIDE 20 MEQ POWDER PACKET NG SCH ×4 (08:38→12:02)
[2020-03-25] MEDS: EPOETIN ALFA (4000 UNIT) 4,000 UNIT/ML VIAL SQ SCH (09:18)
[2020-03-25 09:40] LABS: BASOPHILS % (AUTO) 0.1 % (0.0-2.0); HEMATOCRIT 33 % (39-51); HEMOGLOBIN 10.2 g/dL (13.5-17.5); LYMPHOCYTES # (AUTO) 0.4 /CMM (0.8-4.8); LYMPHOCYTES % (AUTO) 2.7 % (20.0-44.0); MEAN CORPUSCULAR HGB CONC 31 g/dl (31.0-36.0); MEAN CORPUSCULAR VOLUME 81 fL (80-96); MONOCYTES # (AUTO) 0.9 /CMM (0.1-1.30); MONOCYTES % (AUTO) 6.6 % (2.0-12.0); NEUTROPHILS # (AUTO) 12.8 /CMM (1.8-8.9); NEUTROPHILS % (AUTO) 90.6 % (43.0-81.0); PLATELET COUNT (AUTO) 199 /CMM (150-450); RED BLOOD CELL COUNT(AUTO) 4.06 MIL/uL (4.5-6.0); WHITE BLOOD COUNT (AUTO) 14.2 K/uL (4.3-11.0)
--- NOTE | 2020-03-25 10:45 | NUR ---
WIRE SPOOLER NOTE SAT 93% DURING PT ACTIVITIES, ALL NEEDS ATTENDED
--- NOTE | 2020-03-25 15:00 | NUR ---
telephone station installer note all needs attended. cont on g tube feeding ,tolerated .well will cont to monitor closely
[2020-03-25] MEDS: IV D5/0.45 NACL 1,000 ML IV PRN (17:06)
--- NOTE | 2020-03-25 18:19 | NUR ---
LOGISTICS SUPPORT NOTE ROUND MADE ,ALL NEEDS ATTENDED, ON G TUBE FEEDING TOLERATE WELL , ON IVF ORDERED BRYAN CATH TO GRAVITY ,CALL LIGHT WITHIN REACH ,ON RA NO SOB AT THIS TIME, WILL MONITOR
--- NOTE | 2020-03-25 19:20 | NUR ---
RN NOTE RECEIVED PT RESTING IN BED. HEAD OF BED ELEVATED. AWAKE ALERT AND ORIENTED X 1. PT IS UNABLE TO FORMULATE WORDS. FULL CODE. PT NEGATIVE FOR COVID. ADMITTED FOR RESPIRATORY FAILURE. PT IS ON ROOM AIR OXYGEN SATURATION IS AT 99% AT THIS TIME. NO SHORTNESS OF BREATH OR DISTRESS NOTED AT THIS TIME. PT IS INCONTINENT OF BOWEL AND BLADDER. BRYAN CATHETER IN PLACE DRAINING YELLOW URINE WITH NO SEDIMENTS NOTED. PT ON BED REST. SKIN IS CLEAN DRY WARM AND INTACT. NO EDEMA NOTED. IV SITE RIGHT UPPER ARM PICC LINE INTACT PATENT AND FLUSHED. INFUSING WITH D5 1/2NS AT 40 ML/HR. G TUBE IS PATENT AND FLUSHED, PT IS TOLERATING FEEDINGS WITH A RESIDUAL CHECK OF 20CC. ON OSMOLITE FEEDING RUNNING AT 45ML/HR. GOAL IS 50 ML/HR. BED IS LOCKED IN LOWEST POSITION WITH BED ALARM ON. NO APPARENT DISTRESS NOTED AT THIS TIME. CALL LIGHT WITHIN EASY REACH. WILL CONTINUE TO CLOSELY MONITOR.
[2020-03-25] MEDS: MIRTAZAPINE 15 MG TABLET GT SCH (21:23)
[2020-03-25] MEDS: ATORVASTATIN 10 MG TABLET GT SCH (21:23)
[2020-03-25] MEDS: SENNOSIDES 8.6 MG TABLET GT SCH (21:23)
[2020-03-25] MEDS: TAMSULOSIN 0.4 MG CAP.SR.24H GT SCH (21:23)
[2020-03-25] MEDS: OSMOLITE 1.2 CAL 1,000 ML LIQUID GT PRN (23:46)
[2020-03-26] MEDS: IPRATROPIUM NEB FS 0.5 MG/2.5 ML AMPUL.NEB NEB SCH ×4 (00:13→11:36)
[2020-03-26] MEDS: ACETYLCYSTEINE 10% SOLN 400 MG/4 ML VIAL NEB SCH ×2 (00:13→08:04)
[2020-03-26] MEDS: ALBUTEROL HALF STRENGTH 1.25 MG/3 ML VIAL.NEB NEB SCH ×4 (00:14→11:36)
--- NOTE | 2020-03-26 01:58 | NUR ---
RN NOTE PT IS CURRENTLY RESTING AT THIS TIME. BREATHING TREATMENT GIVEN BY RESPIRATORY THERAPIST ORDERED AND TOLERATED WELL. INCREASED G TUBE FEEDING TO GOAL OF 50 ML/HR. TOLERATING WELL. FLUSHED GTUBE WITH 100 ML OF WATER ORDERED. PATENT WITH RESIDUAL CHECK OF 20CC. WILL CONTINUE TO MONITOR.
[2020-03-26 04:00] VITALS: BP 118/73
[2020-03-26 06:38] LABS: BASOPHILS % (AUTO) 0.1 % (0.0-2.0); EOSINOPHILS % (AUTO) 3.3 % (0.0-6.0); HEMATOCRIT 28 % (39-51); HEMOGLOBIN 8.7 g/dL (13.5-17.5); LYMPHOCYTES # (AUTO) 0.7 /CMM (0.8-4.8); MEAN CORPUSCULAR HGB CONC 31 g/dl (31.0-36.0); MEAN CORPUSCULAR VOLUME 80 fL (80-96); MONOCYTES # (AUTO) 1.5 /CMM (0.1-1.30); MONOCYTES % (AUTO) 11.3 % (2.0-12.0); NEUTROPHILS # (AUTO) 11.1 /CMM (1.8-8.9); NEUTROPHILS % (AUTO) 80.3 % (43.0-81.0); PLATELET COUNT (AUTO) 184 /CMM (150-450); RED BLOOD CELL COUNT(AUTO) 3.49 MIL/uL (4.5-6.0); WHITE BLOOD COUNT (AUTO) 13.8 K/uL (4.3-11.0)
--- NOTE | 2020-03-26 07:00 | NUR ---
RN MS 1 PATIENT A/O X2 PATIENT ABLE TO FOLLOW COMMANDS AND UNDERSTAND. PATIENT MS HAS BRYAN WITH CLEAR YELLOW DRAINAGE. PATIENT HAS SCRAL SARRING AND THIGH. PATIENT HAS G TUBE WITH OSMOLITE @ 50 ML/HR. DONNA PICC LINE D5 1/2 NS @ 40 ML/HR NO SIGNS OF INFILTRATION. BED LOCKED LOWESTPOSITION CALL LIGHT WITH IN REACH ALL SAFETY MEAUSRE IMPLEMENTED PER HOSPITAL POLICY
[2020-03-26 07:08] LABS: ALBUMIN 1.5 g/dL (3.4-5.0); BILIRUBIN,TOTAL 0.2 mg/dL (0.2-1.0); CALCIUM, SERUM 7.9 mg/dL (8.5-10.1); CREATININE 1.1 mg/dL (0.6-1.3); PHOSPHORUS 2.3 mg/dL (2.5-4.9); POTASSIUM 3.2 mmol/L (3.5-5.1)
--- NOTE | 2020-03-26 07:19 | NUR ---
RN NOTE PT HAS REMAINED STABLE THROUGHOUT THE NIGHT. ON ROOM AIR SATURATING WELL AT 99%. NO SHORTNESS OF BREATH OR APPARENT DISTRESS NOTED AT THIS TIME. ALL DUE MEDS GIVEN ORDERED. REPOSITIONED Q2H. FLUSHED G TUBE ORDERED. PATENT AND LATEST RESIDUAL CHECK WAS OF 20CC. TOLERATING FEEDING OF OSMOLITE RUNNING AT 50ML/HR. IV SITE PATENT, WITH D5 1/2 NS STILL INFUSING AT 40 ML/HR. NO SIGNS OF INFILTRATION NOTED AT THIS TIME. NOTED 2 BOWEL MOVEMENTS THROUGHOUT THE NIGHT. SOFT AND FORMED. BED IS LOCKED IN LOWEST POSITION WITH BED ALARM ON. CALL LIGHT WITHIN REACH. ENDORSED TO AM SHIFT NURSE FOR CONTINUATION OF CARE.
[2020-03-26 08:00] VITALS: BP 151/83
[2020-03-26] MEDS: FERROUS SULFATE UDC 300 MG/5 ML UDC GT SCH (08:48)
[2020-03-26] MEDS: PANTOPRAZOLE 40 MG/PACK PACK GT SCH (08:48)
[2020-03-26] MEDS: DOCUSATE SODIUM LIQ 100 MG/10 ML UDC GT SCH (08:48)
[2020-03-26] MEDS: HYDROCORTISONE SOD SUCCINATE 100 MG/2 ML VIAL IV SCH (08:49)
[2020-03-26] MEDS: MULTIVIT W/MINERALS 1 TAB TABLET GT SCH (08:49)
[2020-03-26] MEDS: CHOLECALCIFEROL 1,000 UNIT TABLET (VIT D3) GT SCH (08:49)
[2020-03-26] MEDS: AMLODIPINE BESYLATE 10 MG TABLET NG SCH (08:50)
[2020-03-26] MEDS: FLUTICASONE PROPIONATE 16 GM BOTTLE NS SCH (08:50)
[2020-03-26] MEDS: CITALOPRAM HYDROBROMIDE 10 MG TABLET NG SCH (08:52)
[2020-03-26] MEDS ORDERED: POTASSIUM CHLORIDE 20 MEQ TAB.PRT.SR PO SCH (10:00)
[2020-03-26] MEDS: POTASSIUM CHLORIDE 20 MEQ POWDER PACKET NG SCH ×2 (11:23→13:27)
[2020-03-26 12:00] VITALS: BP 145/81
[2020-03-26] MEDS ORDERED: FERR300L GT (13:51)
[2020-03-26] MEDS ORDERED: PANT40SU2 GT (13:51)
[2020-03-26] MEDS ORDERED: PRED20TA PO (13:51)
[2020-03-26] MEDS ORDERED: NEUTRA PHOS 1 POWD.PACKET NG ONE (14:00)
--- NOTE | 2020-03-26 16:00 | NUR ---
CRIME LAB ANALYST PATIENT DISCHARGE TO [facility], REPORT GIVETO NURSE ANTHONY TRACIE FOR RM 37. ALL DISCHARGE PAPERS COMPLETED , PICTURES DONE. TRANSPORT PAINTER PLATE PATIENT FOR TRANSFER.
== END 2020-03-26 15:52 | DRG 208 ==
LOC: ER 11:23 → ICU 14:01 → TELE 03-16 11:48 → MED 03-17 08:32 → ICU 03-20 00:16 → TELE 03-24 13:08 → TELE1 03-24 19:34 → MEDSG1 03-25 22:15
PROVIDERS: ADMIT Internal Medicine; ATTEND Student in an Organized Health Care Education/Training Program
PROC: 30233N1 Transfusion of Nonautologous Red Blood Cells into Peripheral Vein, Percutaneous Approach (ICD-10-PCS; 2020-03-14)
PROC: 5A1945Z Respiratory Ventilation, 24-96 Consecutive Hours (ICD-10-PCS; principal; 2020-03-20)
PROC: 0BH17EZ Insertion of Endotracheal Airway into Trachea, Via Natural or Artificial Opening (ICD-10-PCS; 2020-03-20)
PROC: 02HV33Z Insertion of Infusion Device into Superior Vena Cava, Percutaneous Approach (ICD-10-PCS; 2020-03-20)
PROC: B548ZZA Ultrasonography of Superior Vena Cava, Guidance (ICD-10-PCS; 2020-03-20)
DX: J96.01 Acute respiratory failure with hypoxia (principal); N17.0 Acute kidney failure with tubular necrosis; G93.41 Metabolic encephalopathy; R57.1 Hypovolemic shock; E87.0 Hyperosmolality and hypernatremia; C78.02 Secondary malignant neoplasm of left lung; C78.01 Secondary malignant neoplasm of right lung; C79.51 Secondary malignant neoplasm of bone; K92.2 Gastrointestinal hemorrhage, unspecified; E27.40 Unspecified adrenocortical insufficiency; C76.0 Malignant neoplasm of head, face and neck; J96.02 Acute respiratory failure with hypercapnia; I12.9 Hypertensive chronic kidney disease with stage 1 through stage 4 chronic kidney disease, or unspecified chronic kidney disease; N18.9 Chronic kidney disease, unspecified; J44.9 Chronic obstructive pulmonary disease, unspecified; Z86.73 Personal history of transient ischemic attack (TIA), and cerebral infarction without residual deficits; Z85.118 Personal history of other malignant neoplasm of bronchus and lung; Z87.19 Personal history of other diseases of the digestive system; N40.0 Benign prostatic hyperplasia without lower urinary tract symptoms; D63.8 Anemia in other chronic diseases classified elsewhere; E78.5 Hyperlipidemia, unspecified; E87.6 Hypokalemia; R13.10 Dysphagia, unspecified; Z87.891 Personal history of nicotine dependence; Z93.1 Gastrostomy status; F32.9 Major depressive disorder, single episode, unspecified
CPT/HCPCS: 31720; 36415; 36600; 71045-TC; 80048-TC; 80053-TC; 80076-TC; 81000-TC; 82248-TC; 82272-TC; 82533; 82550-TC; 82570-TC; 82728-TC; 82803-TC; 82962-TC; 83540-TC; 83605-TC; 83735-TC; 83880; 83935-TC; 83970; 84100-TC; 84155; 84155-TC; 84165; 84300-TC; 84443-TC; 84484-TC; 84550-TC; 85025-TC; 85378-TC; 85730-TC; 86850-TC; 86921-TC; 87040-TC; 87081-TC; 87086-TC; 93307-TC; 93970-TC; 94002-TC; 94003-TC; 94760-TC; 94799-TC; 97116-TC; 97530-TC; 99082-TC; C1751; C1769; C9113; G0378; J0885; J1650; J1720; J1815; J1956; J2370; J2543; J2920; J3480; J3490; J7030; J7040; J7050; J7060; P9016-BL; Q9967; U0003-CS